=== PATIENT | female | born 1975 | race Caucasian/White ===

== ENCOUNTER 2020-10-30 11:15 | Outpatient (REF) | payer OTHER, SELFPAY ==
--- NOTE | ~2020-10-30 | XR_ITS ---
EXAMINATION: XR THORACIC SPINE CLINICAL INFORMATION: M54.6 - Pain in thoracic spine COMPARISON: Chest radiographs 11/12/2013, CT abdomen and pelvis 04/15/2020. TECHNIQUE: 3 views of the thoracic spine were obtained. FINDINGS: There is normal thoracic segmentation with 12 rib-bearing thoracic vertebrae of normal height and normal thoracic kyphosis. There is gentle dextrocurvature midthoracic spine. There is no vertebral compression, spondylolisthesis, focal disc narrowing, or destructive process. No paraspinal soft tissue swelling. XR/XR thoracic spine 3V IMPRESSION: Mild dextrocurvature midthoracic spine.
[2020-10-30 14:37] LABS: Hematocrit 46.6 % (37-47); Hemoglobin 15.2 g/dl (12.0-16.0); Mean Corpuscular HGB Conc 32.6 g/dl (31.0-35.0); Mean Corpuscular Hemoglobin 29.7 pg (27.0-33.0); Mean Corpuscular Volume 91.2 fL (80-98); Mean Platelet Volume 10.1 fL (9.4-12.3); Platelet Count 318 X10*3/uL (160-400); Red Blood Count 5.11 X10*6/uL (4.20-5.50); Red Cell Distribution Width 13.8 % (11.0-16.0); White Blood Count 6.3 X10*3/uL (4.8-10.8)
[2020-10-30 14:53] LABS: Anion Gap 12 (12-20); Blood Urea Nitrogen 13 mg/dL (9-16); Calcium 9.1 mg/dL (8.4-10.2); Carbon Dioxide 24 mmol/L (22-29); Chloride 107 mmol/L (96-108); Estimated Glomerular Filt Rate > 60; Glucose Random 101 mg/dL (60-115); Potassium 4.4 mmol/L (3.3-5.1); Sodium 139 mmol/L (135-145)
[2020-10-30 15:20] LABS: TSH reflex Free T4 1.13 uIU/mL (0.32-4.0)
[2020-10-31 14:47] LABS: CRP High Sensitivity 3.5 mg/L
== END 2020-10-30 11:16 | disposition home or self-care (01) ==
LOC: HO.WFDLDS 11:15
PROVIDERS: PCP Hospitalist; Visit Provider Hospitalist
DX: R53.83 Other fatigue (principal); G89.29 Other chronic pain; M54.6 Pain in thoracic spine; M54.5 Low back pain
CPT/HCPCS: 36415; 72072; 80048; 84443; 85027; 86141

== ENCOUNTER 2022-01-29 14:36 | Outpatient (REF) | payer OTHER, SELFPAY ==
[2022-01-29 14:57] LABS: MANUAL DIFF FLAG NO
[2022-01-29 16:03] LABS: Basophils Percent Auto 0.3 % (0-2); Eosinophils Absolute Auto 0.1 X10*3/uL (0.0-0.4); Eosinophils Percent Auto 2.1 % (0-4); Hemoglobin 14.8 g/dl (12.0-16.0); Imm Gran Abs Auto 0.01 X10*3/uL (0.00-0.03); Imm Gran Pct Auto 0.1 % (0.0-0.4); Lymphocytes Absolute Auto 1.3 X10*3/uL (1.2-4.9); Lymphocytes Percent Auto 19.5 % (20-40); Mean Corpuscular HGB Conc 33.6 g/dl (31.0-35.0); Mean Corpuscular Hemoglobin 29.6 pg (27.0-33.0); Mean Platelet Volume 9.9 fL (9.4-12.3); Monocytes Absolute Auto 0.4 X10*3/uL (0.1-1.2); Monocytes Percent Auto 5.9 % (2-11); Neutrophils Absolute Auto 4.9 x10*3/uL (2.0-8.3); Neutrophils Percent Auto 72.1 % (45-73); Platelet Count 314 X10*3/uL (160-400); Red Cell Distribution Width 13.8 % (11.0-16.0); White Blood Count 6.8 X10*3/uL (4.8-10.8)
[2022-01-29 16:13] LABS: Alanine Aminotransferase 19 U/L (0-31); Albumin Level 4.4 g/dL (3.5-5.0); Alkaline Phosphatase 106 U/L (39-117); Anion Gap 13 (12-20); Aspartate Amino Transferase 22 U/L (5-31); Bilirubin Total 0.5 mg/dL (0.0-1.0); Blood Urea Nitrogen 9 mg/dL (9-16); C Reactive Protein 0.53 mg/dL (< or = 0.50); Calcium 9.1 mg/dL (8.4-10.2); Carbon Dioxide 21 mmol/L (22-29); Chloride 107 mmol/L (96-108); Estimated Glomerular Filt Rate > 60; Glucose Random 118 mg/dL (60-115); Potassium 3.7 mmol/L (3.3-5.1); Sodium 137 mmol/L (135-145); Total Protein 7.7 g/dL (6.5-8.0)
[2022-02-02 07:26] LABS: Gliadin Deamidated IgA Ab <1.0 U/mL; Gliadin Deamidated IgG Ab <1.0 U/mL; Transglutaminase Ab IgG <1.0 U/mL; Transglutaminase IgA <1.0 U/mL
== END 2022-01-29 14:37 | disposition home or self-care (01) ==
LOC: HO.LAB 14:36
PROVIDERS: PCP Hospitalist; Visit Provider Nurse Practitioner
DX: K58.0 Irritable bowel syndrome with diarrhea (principal)
CPT/HCPCS: 36415; 80053; 85025; 86003; 86140; 86258; 86364; 99202

== ENCOUNTER 2022-02-16 15:00 | Outpatient (REF) | payer OTHER, SELFPAY ==
[2022-02-20 19:22] LABS: Calprotectin, Fecal 39 mcg/g
[2022-02-21 15:32] LABS: Pancreatic Elastase-1 38 mcg/g
== END 2022-02-16 15:01 | disposition home or self-care (01) ==
LOC: HO.LNP 15:00
PROVIDERS: Visit Provider Nurse Practitioner
DX: K58.0 Irritable bowel syndrome with diarrhea (principal)
CPT/HCPCS: 82656; 83993

== ENCOUNTER → 2022-03-03 13:36 | Outpatient (BNVA) | payer OTHER, SELFPAY | PROVIDERS: PCP Hospitalist; Visit Provider Nurse Practitioner | DX: K58.0 Irritable bowel syndrome with diarrhea (principal); G89.29 Other chronic pain; M54.6 Pain in thoracic spine | CPT/HCPCS: 99212 ==

== ENCOUNTER 2022-04-14 12:56 | Outpatient (REF) | payer OTHER, SELFPAY | END 2022-04-14 12:57 | disposition home or self-care (01) | LOC: HO.LAB 12:56 | PROVIDERS: PCP Hospitalist; Visit Provider Nurse Practitioner | DX: K58.0 Irritable bowel syndrome with diarrhea (principal); K86.81 Exocrine pancreatic insufficiency | CPT/HCPCS: 36415; 86003; 99212 ==

== ENCOUNTER → 2022-05-12 10:07 | Outpatient (BNVA) | payer OTHER, SELFPAY | PROVIDERS: PCP Hospitalist; Visit Provider Nurse Practitioner | DX: K86.81 Exocrine pancreatic insufficiency (principal); K58.0 Irritable bowel syndrome with diarrhea | CPT/HCPCS: 99212 ==

== ENCOUNTER → 2022-07-07 12:30 | Outpatient (BNVA) | payer OTHER, SELFPAY | PROVIDERS: PCP Hospitalist; Visit Provider Nurse Practitioner | DX: K86.81 Exocrine pancreatic insufficiency (principal); K58.0 Irritable bowel syndrome with diarrhea | CPT/HCPCS: 99212 ==

== ENCOUNTER 2022-11-10 14:49 | Outpatient (REF) | payer OTHER, SELFPAY ==
[2022-11-10 16:24] LABS: MANUAL DIFF FLAG NO
[2022-11-10 17:07] LABS: Basophils Percent Auto 0.6 % (0-2); Eosinophils Absolute Auto 0.1 X10*3/uL (0.0-0.4); Eosinophils Percent Auto 1.5 % (0-4); Hematocrit 45.7 % (37.0-47.0); Hemoglobin 15.1 g/dl (12.0-16.0); Imm Gran Abs Auto 0.01 X10*3/uL (0.00-0.03); Imm Gran Pct Auto 0.1 % (0.0-0.4); Lymphocytes Absolute Auto 1.6 X10*3/uL (1.2-4.9); Mean Corpuscular Hemoglobin 29.4 pg (27.0-33.0); Mean Corpuscular Volume 89.1 fL (80.0-98.0); Mean Platelet Volume 9.6 fL (9.4-12.3); Monocytes Absolute Auto 0.5 X10*3/uL (0.1-1.2); Monocytes Percent Auto 7.2 % (2-11); Neutrophils Percent Auto 68.6 % (45-73); Platelet Count 298 X10*3/uL (160-400); Red Blood Count 5.13 X10*6/uL (4.20-5.50); Red Cell Distribution Width 13.6 % (11.0-16.0); White Blood Count 7.3 X10*3/uL (4.8-10.8)
[2022-11-10 17:41] LABS: Amylase 49 U/L (28-100); Lipase 20 U/L (8-78)
[2022-11-10 17:58] LABS: TSH reflex Free T4 1.48 uIU/mL (0.32-4.0)
== END 2022-11-10 14:50 | disposition home or self-care (01) ==
LOC: HO.LAB 14:49
PROVIDERS: PCP Hospitalist; Visit Provider Nurse Practitioner
DX: R10.9 Unspecified abdominal pain (principal); K86.81 Exocrine pancreatic insufficiency; M54.6 Pain in thoracic spine
CPT/HCPCS: 36415; 82150; 83690; 84443; 85025; 99212

== ENCOUNTER 2022-12-22 15:18 | Outpatient (REF) | payer OTHER, SELFPAY ==
--- NOTE | ~2022-12-22 | CT_ITS ---
EXAMINATION: CT ABDOMEN AND PELVIS WITH CONTRAST CLINICAL INFORMATION: Abdominal pain. COMPARISON: CT abdomen and pelvis with contrast 04/15/2020. TECHNIQUE: Multidetector volumetric images were obtained from the superior aspect of the liver through the pubic symphysis following administration 85 mL of Omnipaque 350 intravenous contrast. Sagittal and coronal reformatted images were obtained on the technologist's workstation. Oral contrast: No This CT examination was performed using dose optimization techniques as appropriate, variously including the following: *Automated exposure control *Adjustment of mA and/or kV according to patient size (this includes techniques or standardized protocols for targeted exams where dose is matched to indication/reason for exam; i.e. extremities or head) *Use of iterative reconstruction technique DLP: 501 mGy-cm FINDINGS: LUNG BASES: The visualized lung bases are unremarkable. LIVER, GALLBLADDER, AND BILIARY TREE: The liver is normal in size, shape, and attenuation. No focal hepatic lesion or biliary ductal dilatation is present. The gallbladder is unremarkable with no evidence of radiopaque gallstones, gallbladder wall thickening, or obvious pericholecystic inflammatory changes. PANCREAS: Unremarkable. SPLEEN: Unremarkable. ADRENAL GLANDS: Unremarkable. KIDNEYS AND URETERS: The kidneys are normal in size, shape, and attenuation. No hydronephrosis, hydroureter, or calculi seen. No perinephric stranding. There are at least 2 left renal cysts measuring 2 cm and 1.7 cm in lower pole and a smaller 6 mm cyst lower pole right kidney. BLADDER: Unremarkable. GASTROINTESTINAL TRACT: There is scattered stool and gas seen throughout the colon without distention. The small bowel loops are normal caliber. Appendix is normal caliber. ABDOMINAL WALL: Small umbilical hernia containing fat is noted. LYMPH NODES: Normal. VASCULAR: Unremarkable. PELVIC VISCERA: The uterus is anteverted and appears unremarkable. There is no adnexal mass or free fluid. OSSEOUS STRUCTURES: No aggressive lytic or sclerotic process seen. CT/CT abdomen pelvis w IV con IMPRESSION: 1. No acute intra-abdominal process seen. 2. Bilateral renal cysts. 3. No major change compared to previous study 04/15/2020. Fleischner guidelines were followed.
[2022-12-22] MEDS: iohexoL 350 MG/ML 100 ML INFUS..BTL IV (15:45)
== END 2022-12-22 15:19 | disposition home or self-care (01) ==
LOC: HO.CT 15:18
PROVIDERS: PCP Hospitalist; Visit Provider Nurse Practitioner
DX: R10.9 Unspecified abdominal pain (principal)
CPT/HCPCS: 74177; Q9967

== ENCOUNTER 2023-06-28 11:14 | Outpatient (AMB) | payer OTHER, SELFPAY ==
[2023-06-28 11:19] VITALS: BP 128/78; PULSE 103; O2SAT 98; BMI 34.5
--- NOTE | 2023-06-28 11:19 | MHC.PC.OV ---
Vital Signs 06/28/23 11:19 Height 5 ft 5 in Weight 207 lb 2 oz BMI 34.5 BP 128/78 Blood Pressure Location Lt brachial Position Sitting Pulse 103 H Pulse Source Pulse Oximeter Pulse Oximetry (%) 98 Oxygen Delivery Method Room Air Intake Visit Reasons: Transfer of care, f/u chronic conditions Intake Note: Patient is here to transfer care from [facility]. Allergies Sulfa (Sulfonamide Antibiotics) Allergy (Intermediate, Verified 06/28/23 11:21) hives Tobacco use date assessed: 06/28/23 Dental Screening Dental Screen Date: 06/28/23 Did you have a dental visit in the last 12 months?: Yes Did you have a dental problem in the last 6 months where you did not have access to dental care?: No Was dental information given to patient?: Yes HPI Transfer of care, f/u chronic conditions HPI Details New patient/Transfer of Care Prior PCP:?[facility] Last office visit/CPE: Acute issue(s): b/L Hand swelling -Does have hx of arthritis. She reports FHx of lupus. PMHx: Thoracic back pain, Hypertension, Anxiety/Depression, IBS, Overactive bladder, Asthma SurgHx: None FHx: Mom: Diabetes, Epilepsy, Dementia. Dad: COPD, CAD SocHx: Nonsmoker. EtOH none. No drugs. PFSH Surgical History H/O colonoscopy History of bronchoscopy History of wisdom tooth extraction Family History Father COPD (chronic obstructive pulmonary disease) Smoker Mother Dementia Social History Housing: Apartment Patient Tobacco Use Status: Never used Tobacco e-Cigarette/Vaping Use: Never Used Second Hand Smoke Exposure: Yes service: No Current occupational status: unemployed Current occupational exposures/hazards: No Cognitive needs: No Hearing needs: No Vision needs: No Questionnaire Thrive Questionnaire Date Thrive assessed: 11/25/22 TRACEE-7 AMB Questionnaire TRACEE-7 Date TRACEE - 7 assessed: 11/25/22 Source: Developed by Drs. Jimmie Suresh, Emilie Dudley, Eddie Gusman and colleagues, with an educational sohail from [email or web address]. Review of Systems Const Denies chills, Denies fatigue, Denies fever(s), Denies headache(s) and Denies weakness ENT Denies dizziness and Denies headache(s) Card Denies chest pain, Denies lightheadedness, Denies dyspnea and Denies other (Palpitations) Resp Denies cough, Denies dyspnea, Denies wheezing and Denies other ( shortness of breath) Musc Denies numbness and Denies tingling Neuro Denies dizziness, Denies headache(s), Denies numbness, Denies tingling, Denies paresthesias and Denies weakness Psych Denies anxiety and Denies depression Endo Denies fatigue Aller/Immun Denies wheezing Physical exam (Primary Care) Vital Signs: Last Vital Signs Pulse 103 H 06/28/23 11:19 BP 128/78 06/28/23 11:19 Pulse Ox 98 06/28/23 11:19 Oxygen Delivery Method Room Air 06/28/23 11:19 BMI result Body Mass Index 34.5 Tobacco/Smoking Status: Tobacco use Status Tobacco use date assessed 06/28/23 06/28/23 11:22 Patient Tobacco Use Status Never used Tobacco 06/28/23 11:22 e-Cigarette/Vaping Use Never Used 06/28/23 11:22 Thrive Assessment: Date of Thrive Assessment Date Thrive assessed 11/25/22 06/28/23 11:22 Const General: no acute distress and well developed Nutritional Appearance: well nourished Orientation/consciousness: patient oriented x3 HENMT Head: Yes normocephalic and Yes atraumatic Eyes General: appearance normal, both eyes and all related structures Pupils: Equal, round and reactive pupils present EOM: EOMs intact bilaterally Resp Effort & Inspection: normal respiratory effort Auscultation: clear to auscultation bilaterally Cardio Rate: regular rate Rhythm: regular rhythm Heart sounds: S1 normal heart sound present, S2 normal heart sound present, no gallops, no murmurs and no rubs Neuro General: patient oriented x3 and gait normal Cranial nerves: Yes Equal, round and reactive pupils present Psych Affect: normal affect Assessment and Plan Assessment & Plan (1) Thoracic back pain: Code(s): M54.6 - Pain in thoracic spine (2) Hand swelling: Code(s): M79.89 - Other specified soft tissue disorders (3) Anxiety and depression: Code(s): F41.9 - Anxiety disorder, unspecified; F32.9 - Major depressive disorder, single episode, unspecified (4) HTN (hypertension): Code(s): I10 - Essential (primary) hypertension (5) Laboratory exam ordered as part of routine general medical examination: Code(s): Z00.00 - Encounter for general adult medical examination without abnormal findings (6) Immunization counseling: Code(s): Z71.85 - Encounter for immunization safety counseling Orders: Orders Comprehensive [place]. Panel Fast Today Z00.00 - Encounter for general adult medical examination without abnormal findings UA and rflx microscopic Today Z00.00 - Encounter for general adult medical examination without abnormal findings TSH reflex Free T4 Today Z00.00 - Encounter for general adult medical examination without abnormal findings Vitamin B12 and Folate Today E53.8 - Deficiency of other specified B group vitamins Erythrocyte Sedimentation Rate Today M79.89 - Other specified soft tissue disorders CRP High Sensitivity Today M79.89 - Other specified soft tissue disorders Complete Blood Count Auto Diff Today Z00.00 - Encounter for general adult medical examination without abnormal findings Lipid Panel Today Z00.00 - Encounter for general adult medical examination without abnormal findings Microalbumin, Random (w Creat) Today I10 - Essential (primary) hypertension Lipase Today K86.81 - Exocrine pancreatic insufficiency Amylase Today K86.81 - Exocrine pancreatic insufficiency PT Evaluation and Treatment Today G89.29 - Other chronic pain, M54.50 - Low back pain, unspecified, M54.6 - Pain in thoracic spine Medications: New fluoxetine Fluoxetine total daily dose 30mg 10 mg PO DAILY 30 caps 3RF 30 days Changed From fluoxetine 20 mg PO DAILY 90 caps 3RF To fluoxetine Fluoxetine?total?daily?dose?30?mg 20 mg PO DAILY 90 days 90 caps 3RF Coding Level of Care Code Est Pt Level 4 (82259) Diagnoses Thoracic back pain M54.6 Hand swelling M79.89 Anxiety and depression F41.9; F32.9 HTN (hypertension) I10 Laboratory exam ordered as part of routine general medical examination Z00.00 Immunization counseling Z71.
== END 2023-06-28 12:36 | disposition home or self-care (01) ==
PROVIDERS: PCP Hospitalist; Visit Provider Family Medicine
DX: M54.6 Pain in thoracic spine (principal); M79.89 Other specified soft tissue disorders; F41.9 Anxiety disorder, unspecified; Z23 Encounter for immunization; F32.9 Major depressive disorder, single episode, unspecified; I10 Essential (primary) hypertension; Z71.85 Encounter for immunization safety counseling
CPT/HCPCS: 90471; 90686; 99214

== ENCOUNTER 2023-07-12 11:02 | Outpatient (REF) | payer OTHER, SELFPAY ==
[2023-07-12 11:36] LABS: MANUAL DIFF FLAG NO
[2023-07-12 12:05] LABS: Basophils Percent Auto 0.3 % (0-2); Eosinophils Absolute Auto 0.1 X10*3/uL (0.0-0.4); Eosinophils Percent Auto 2.2 % (0-4); Hematocrit 45.1 % (37.0-47.0); Imm Gran Abs Auto 0.01 X10*3/uL (0.00-0.03); Imm Gran Pct Auto 0.2 % (0.0-0.4); Lymphocytes Absolute Auto 1.4 X10*3/uL (1.2-4.9); Lymphocytes Percent Auto 24.1 % (20-40); Mean Corpuscular HGB Conc 33.3 g/dl (31.0-35.0); Mean Corpuscular Hemoglobin 29.9 pg (27.0-33.0); Mean Corpuscular Volume 89.8 fL (80.0-98.0); Mean Platelet Volume 9.7 fL (9.4-12.3); Monocytes Absolute Auto 0.4 X10*3/uL (0.1-1.2); Neutrophils Absolute Auto 3.9 x10*3/uL (2.0-8.3); Neutrophils Percent Auto 67.2 % (45-73); Platelet Count 266 X10*3/uL (160-400); Red Blood Count 5.02 X10*6/uL (4.20-5.50); Red Cell Distribution Width 13.7 % (11.0-16.0); White Blood Count 5.8 X10*3/uL (4.8-10.8)
[2023-07-12 12:40] LABS: Alanine Aminotransferase 21 U/L (0-31); Albumin Level 4.2 g/dL (3.5-5.0); Alkaline Phosphatase 87 U/L (39-117); Amylase 43 U/L (28-100); Anion Gap 9 (12-20); Aspartate Amino Transferase 16 U/L (5-31); Bilirubin Total 0.6 mg/dL (0.0-1.0); Blood Urea Nitrogen 10 mg/dL (9-16); Calcium 9.2 mg/dL (8.4-10.2); Carbon Dioxide 24 mmol/L (22-29); Chloride 109 mmol/L (96-108); Cholesterol 197 mg/dL (<200); Estimated Glomerular Filt Rate > 60; Glucose Fasting 101 mg/dL (60-99); HDL Cholesterol 40 mg/dL (>40); LDL Cholesterol Calculated 141 mg/dL (<100); Lipase 17 U/L (8-78); Potassium 3.7 mmol/L (3.3-5.1); Sodium 138 mmol/L (135-145); Total Protein 7.9 g/dL (6.5-8.0); Triglycerides 82 mg/dL (<150)
[2023-07-12 12:42] LABS: Erythrocyte Sedimentation Rate 32 MM/HR (0-20)
[2023-07-12 12:55] LABS: TSH reflex Free T4 1.83 uIU/mL (0.32-4.0)
[2023-07-12 13:07] LABS: Vitamin B12 297 pg/mL (200-900)
[2023-07-12 14:08] LABS: Appearance Urine Hazy; Color Urine Yellow; Glucose Urine UA Negative (Negative); Leukocyte Esterase Urine Small (1+) (Negative); Nitrite Urine Negative (Negative); UMIC TRIGGER UA YES; Urine Blood Trace (Negative); Urine Ketones Negative (Negative); Urine Protein Trace mg/dL (Neg-Trace)
[2023-07-12 14:18] LABS: Bacteria Urine 2+ (None Seen); Hyaline Casts Urine 0-2 /LPF (0-2); RBC Urine 0-2 /HPF (0-2)
[2023-07-12 14:27] LABS: Creatinine Urine 206.73 mg/dL; Microalbum/Creatinine Ratio Ur 23.2 ug/mg cr (<30)
[2023-07-15 19:33] LABS: CRP High Sensitivity 3.2 mg/L
== END 2023-07-12 11:03 | disposition home or self-care (01) ==
LOC: HO.LAB 11:02
PROVIDERS: PCP Family Medicine; Visit Provider Family Medicine
DX: Z00.00 Encounter for general adult medical examination without abnormal findings (principal); E53.8 Deficiency of other specified B group vitamins; I10 Essential (primary) hypertension; M79.89 Other specified soft tissue disorders; K86.81 Exocrine pancreatic insufficiency
CPT/HCPCS: 36415; 80053; 80061; 81001; 82043; 82150; 82570; 82607; 82746; 83690; 84443; 85025; 85652; 86141

== ENCOUNTER 2023-08-26 12:08 | Outpatient (AMB) | payer OTHER, SELFPAY ==
--- NOTE | 2023-08-26 12:10 | A.OFFVIS_ITS ---
Intake Vital Signs 08/26/23 12:17 Height 5 ft 5 in Weight 207 lb 3.752 oz BMI 34.5 BP 163/92 H Blood Pressure Location Lt brachial Position Sitting Pulse 105 H Intake Visit Reasons: follow up req by pt Intake Note: Myrna She would like results to her blood work from June. That is her only real concern at this time. Higher Education Administrator Required: No Allergies Sulfa (Sulfonamide Antibiotics) Allergy (Intermediate, Verified 08/26/23 12:19) hives Medication List - Last Reconciled 08/26/23 by KAREN Redding albuterol sulfate 90 mcg/actuation (ProAir HFA) 2 puffs inhalation Q4-6H PRN blood pressure monitor (Blood Pressure Kit) monitor bp daily and when not feeling well clonidine HCl 0.1 mg PO TID PRN dicyclomine 20 mg PO QID 30 days eluxadoline (Viberzi) 100 mg PO BID eluxadoline (Viberzi) 100 mg PO BID fluoxetine 10 mg PO DAILY 30 days fluoxetine 20 mg PO DAILY 90 days [id number] 24,000-76,000 -120,000 unit (Creon) 2 caps PO QID 30 days loperamide (Anti-Diarrheal (loperamide)) mg PO losartan 25 mg PO DAILY medroxyprogesterone 150 mg IM [id number] HPI follow up req by pt HPI Details Assessment & Plan (1) Exocrine pancreatic insufficiency: Comment: pancreatic elastase only 36!! Code(s): K86.81 - Exocrine pancreatic insufficiency Plan: She is using the Lotronex 0.5mg bid and at first she stopped the creon, but then she became very crampy and gassy and had to restart it. She has better bowel control, but at times it is variable between softer and harder stooling. We discuss possible increase in dose, but she wants to wait longer to see. She is concerned with left sided mid to low back pain that at times wraps around to the front. She describes this pain as a crampy/achy/pushing sensation. This is worsened with prolonged standing and some movements and not r/t bowel movements. This has been interrupting her sleep. She tries putting a pillow behind her back when sitting or laying and has used a heating pad. The pain is always there at a low level of 2/10 but at times is 7/10. There is no association with BM's or urine that she can recall. Will get CT to be thorough and rule out any internal organ/major problem. It sounds really musculoskeletal, and despite a fairly normal thoracic xray she has very increased paraspinal tone in the low thoracic back/early lumbar region with point tenderness at L2-L3 and to the left. I will try a bid dose of baclofen, cautioning her that if it make spencer too sleepy during the day to take it only qhs. She is not taking clonidine regularly, but I educate her this could be causing drowsiness. Also will get labs incl TSH. ROV after CT. (2) Thoracic back pain: Code(s): M54.6 - Pain in thoracic spine (3) Left sided abdominal pain: Code(s): R10.9 - Unspecified abdominal pain Orders: Orders Amylase Today R10.9 - Unspecifie d abdominal pain Lipase Today R10.9 - Unspecifie d abdominal pain TSH reflex Free T4 Today R10.9 - Unspecifie d abdominal pain CT abdomen pelvis w IV con Today R10.9 - Unspecifie d abdominal pain Complete Blood Cou nt Auto Diff Today R10.9 - Unspecifie d abdominal pain Medications: New baclofen 20 mg PO BID 60 t abs 0RF M54.6 - Pain in th oracic spine, R10. 9 - Unspecified ab dominal pain Refilled alosetron (Lotrone x) 1 mg (2 x 0.5 mg) PO BID 60 tabs 6RF K58.0 - Irritable bowel syndrome wit h diarrhea Discontinued eluxadoline (Viber zi) must admini ster with a meal/f ood, stopping dicy clomine and creon Discontinued Re ason: Doctor's Or patricia 75 mg PO BID 60 t abs 3RF LABS: Laboratory Tests 07/12/23 11:33 WBC 5.8 Hgb 15.0 Hct 45.1 Plt Count 266 Amylase 43 [address]ase [address] ABD AND PELVIS 12/24/22 FINDINGS: LUNG BASES: The visualized lung bases are unremarkable. LIVER, GALLBLADDER, AND BILIARY TREE: The liver is normal in size, shape, and attenuation. No focal hepatic lesion or biliary ductal dilatation is present. The gallbladder is unremarkable with no evidence of radiopaque gallstones, gallbladder wall thickening, or obvious pericholecystic inflammatory changes. PANCREAS: Unremarkable. SPLEEN: Unremarkable. ADRENAL GLANDS: Unremarkable. KIDNEYS AND URETERS: The kidneys are normal in size, shape, and attenuation. No hydronephrosis, hydroureter, or calculi seen. No perinephric stranding. There are at least 2 left renal cysts measuring 2 cm and 1.7 cm in lower pole and a smal ler 6 mm cyst lower pole right kidney. BLADDER: Unremarkable. GASTROINTESTINAL TRACT: There is scattered stool and gas seen throughout the colon without distention. The small bowel loops are normal caliber. Appendix is normal caliber. ABDOMINAL WALL: Small umbilical hernia containing fat is noted. LYMPH NODES: Normal. VASCULAR: Unremarkable. PELVIC VISCERA: The uterus is anteverted and appears unremarkable. There is no adnexal mass or free fluid. OSSEOUS STRUCTURES: No aggressive lytic or sclerotic process seen. CT/CT abdomen pelvis w IV con IMPRESSION: 1. No acute intra-abdominal process seen . 2. Bilateral renal cysts. 3. No major change compared to previous study 04/15/2020. TODAY'S VISIT She had trouble with diarrhea and stomach pain over the holiday/week. She notes that her sx are worse with beef and fattier foods. She is c/o darker yellow urine, and this is likely r/t diarrhea and decreased po intake. I believe that her symptoms are combination of exocrine pancreatic insufficiency and IBS. We have pretty much excluded any severe pathology. I did educate her that this takes detect to work on her part in terms of keeping a good food diary, stress diary, etc. to try to find triggers for her symptoms. In order to give her better control were going to add back in the dicyclomine and I suggest she take this up to 4 times a day when she has having a bad week. She is currently taking the Viberzi just once a day because she became constipated when she took it twice a day. She also continues on her Creon taking 2 tablets twice a day. Return office visit in 8 weeks to see if she is discovered any other triggers and to evaluate the dicyclomine. [facility] Medical History (Updated 08/26/23 @ 12:22 by KAREN Redding) Immunization counseling Laboratory exam ordered as part of routine general medical examination Annual physical exam Screening for blood or protein in urine Normal physical exam Left sided abdominal pain Thoracic back pain Colon cancer screening Elevated blood pressure reading Symptomatic tonsillar crypt Well adult exam Left low back pain Surgical History H/O colonoscopy History of bronchoscopy History of wisdom tooth extraction Family History Father COPD (chronic obstructive pulmonary disease) Smoker Mother Dementia Social History Housing: Apartment Patient Tobacco Use Status: Never used Tobacco e-Cigarette/Vaping Use: Never Used Second Hand Smoke Exposure: Yes service: No Current occupational status: unemployed Current occupational exposures/hazards: No Cognitive needs: No Hearing needs: No Vision needs: No Review of Systems Const Denies fatigue, Denies fever(s), Denies night sweats, Denies poor appetite and Denies weight loss ENT Reports Normal hearing present, Denies dental pain, Denies dysphagia, Denies hearing loss, Denies mouth pain, Denies odynophagia, Denies throat swelling, Denies tongue swelling and Reports other (Dentition adequate) Card Reports no additional complaints Resp Reports no additional complaints GI Denies abdominal pain, Denies melena, Reports bloating, Denies hematochezia, Denies constipation, Denies GI cramping, Denies dysphagia, Denies excessive flatus, Denies early satiety, Reports dyspepsia, Denies heartburn, Reports diarrhea, Denies nausea, Denies odynophagia, Denies vomiting and Denies hematemesis Skin/Breast Denies pruritus, Denies lesions, Denies rash and Denies jaundice Neuro Reports Normal hearing present and Denies Abnormal speech present Endo Denies fatigue Aller/Immun Denies throat swelling and Denies tongue swelling Physical Exam Vital Signs: Last Vital Signs Pulse 105 H 08/26/23 12:17 BP 163/92 H 08/26/23 12:17 BMI result Body Mass Index 34.5 Const General: cooperative, no acute distress, well developed and well groomed Nutritional Appearance: well nourished and obese Orientation/consciousness: oriented to person, oriented to place and oriented to time Limitations: No language barrier HEENT Head: Yes normocephalic and Yes atraumatic Eyes General: appearance normal, both eyes and all related structures Pupils: Equal, round and reactive pupils present Neck Neck: Yes normal visual inspection and Yes no lymphadenopathy Thyroid: Thyroid normal Resp Effort & Inspection: normal respiratory effort and able to speak in complete sentences Auscultation: clear to auscultation bilaterally Cardio Rate: regular rate Rhythm: regular rhythm Heart sounds: Normal, physiologic split S2 sound present Peripheral pulses: radial pulses present and posterior tibial pulses present GI Inspection: No distended, No Abdominal panniculus present and Yes obesity Palpation (GI): Soft to palpation, nontender, no guarding, not rigid and No hepatosplenomegaly present Percussion: Yes normal to percussion Auscultation: normal bowel sounds Rectal Exam - Female: deferred Skin General skin exam: no rashes or lesions noted, turgor normal, skin not dry, no jaundice, No spider nevi and no striae Rashes: no rashes Nails: normal Neuro General: oriented to person, oriented to place and oriented to time Cranial nerves: Yes Equal, round and reactive pupils present and Yes Normal hearing present Speech: No Abnormal speech present Extrem General: Yes normal to inspection, No clubbing, No cyanosis and No edema Psych Appearance: grossly normal and well kempt Mental Status: mental status grossly normal Speech and movement: Normal speech and movement present Affect: normal affect Attitude: cooperative Thought process: Normal thought process present and not confabulating Thought content: Normal thought content present Insight: Limited insight present (Psych) Judgement: Limited judgement present (Psych) Results Reviewed Results Reviewed: Laboratory Tests 07/12/23 11:33 WBC 5.8 Hgb 15.0 Hct 45.1 Plt Count 266 Amylase 43 Lipase [address] ABD AND PELVIS 12/24/22 FINDINGS: LUNG BASES: The visualized lung bases are unremarkable. LIVER, GALLBLADDER, AND BILIARY TREE: The liver is normal in size, shape, and attenuation. No focal hepatic lesion or biliary ductal dilatation is present. The gallbladder is unremarkable with no evidence of radiopaque gallstones, gallbladder wall thickening, or obvious pericholecystic inflammatory changes. PANCREAS: Unremarkable. SPLEEN: Unremarkable. ADRENAL GLANDS: Unremarkable. KIDNEYS AND URETERS: The kidneys are normal in size, shape, and attenuation. No hydronephrosis, hydroureter, or calculi seen. No perinephric stranding. There are at least 2 left renal cysts measuring 2 cm and 1.7 cm in lower pole and a smaller 6 mm cyst lower pole right kidney. BLADDER: Unremarkable. GASTROINTESTINAL TRACT: There is scattered stool and gas seen throughout the colon without distention. The small bowel loops are normal caliber. Appendix is normal caliber. ABDOMINAL WALL: Small umbilical hernia containing fat is noted. LYMPH NODES: Normal. VASCULAR: Unremarkable. PELVIC VISCERA: The uterus is anteverted and appears unremarkable. There is no adnexal mass or free fluid. OSSEOUS STRUCTURES: No aggressive lytic or sclerotic process seen. CT/CT abdomen pelvis w IV con IMPRESSION: 1. No acute intra-abdominal process seen. 2. Bilateral renal cysts. 3. No major change compared to previous study 04/15/2020. Assessment & Plan Assessment & Plan (1) Irritable bowel syndrome with diarrhea: Code(s): K58.0 - Irritable bowel syndrome with diarrhea (2) Exocrine pancreatic insufficiency: Comment: pancreatic elastase only 36!! Code(s): K86.81 - Exocrine pancreatic insufficiency Plan She had trouble with diarrhea and stomach pain over the holiday/week. She notes that her sx are worse with beef and fattier foods. She is c/o darker yellow urine, and this is likely r/t diarrhea and decreased po intake. I believe that her symptoms are combination of exocrine pancreatic insufficiency and IBS. We have pretty much excluded any severe pathology. I did educate her that this takes detect to work on her part in terms of keeping a good food diary, stress diary, etc. to try to find triggers for her symptoms. In order to give her better control were going to add back in the dicyclomine and I suggest she take this up to 4 times a day when she has having a bad week. She is currently taking the Viberzi just once a day because she became constipated when she took it twice a day. She also continues on her Creon taking 2 tablets twice a day. Return office visit in 8 weeks to see if she is discovered any other triggers and to evaluate the dicyclomine. Medications: New dicyclomine 20 mg PO QID 30 days 120 tabs 6RF K58.0 - Irritable bowel syndrome with diarrhea Refilled eluxadoline (Viberzi) must administer with a meal/food 100 mg PO BID 60 tabs 5RF Discontinued baclofen Discontinued Reason: Doctor's Order 20 mg PO BID 90 days 180 tabs 0RF M54.6 - Pain in thoracic spine, R10.9 - Unspecified abdominal pain Coding Level of Care Code Est Pt Level 3 (44308) Diagnoses Irritable bowel syndrome with diarrhea K58.0 Exocrine pancreatic insufficiency K86.81
[2023-08-26 12:17] VITALS: BP 163/92; PULSE 105; BMI 34.5
== END 2023-08-26 12:52 | disposition home or self-care (01) ==
PROVIDERS: PCP Family Medicine; Visit Provider Nurse Practitioner
DX: K58.0 Irritable bowel syndrome with diarrhea (principal); K86.81 Exocrine pancreatic insufficiency
CPT/HCPCS: 99213

== ENCOUNTER → 2023-08-26 12:08 | Outpatient (BNVA) | payer OTHER, SELFPAY | PROVIDERS: PCP Family Medicine; Visit Provider Nurse Practitioner | DX: K86.81 Exocrine pancreatic insufficiency (principal); K58.0 Irritable bowel syndrome with diarrhea; Z79.899 Other long term (current) drug therapy | CPT/HCPCS: 99212 ==

== ENCOUNTER 2023-10-21 11:56 | Outpatient (AMB) | payer OTHER, SELFPAY ==
[2023-10-21 11:58] VITALS: BP 173/82; PULSE 101; BMI 34.8
--- NOTE | 2023-10-21 11:58 | A.OFFVIS_ITS ---
Intake Vital Signs 10/21/23 11:58 10/21/23 12:06 Height 5 ft 5 in Weight 209 lb 7.026 oz BMI 34.8 BP 173/82 H 160/72 H Blood Pressure Location Lt brachial Rt brachial Position Sitting Sitting Pulse 101 H Intake Visit Reasons: 8 weeks follow up Intake Note: Patient in office today in 8 weeks follow up of IBS. CC: Dizzy spells for a month on and off and feeling like she will faint. Patient denies other GI concerns today. Cover Operator Required: No Accompanied by: Self / Same As Patient Allergies Sulfa (Sulfonamide Antibiotics) Allergy (Intermediate, Verified 08/26/23 12:19) hives HPI 8 weeks follow up HPI Details Assessment & Plan (1) Irritable bowel syndrome with diarrh ea: Code(s): K58.0 - Irritable bowel syndrome with diarrhea (2) Exocrine pancreatic insufficiency: Comment: pancreatic elastase only 36!! Code(s): K86.81 - Exocrine pancreatic insufficiency Plan She had trouble with diarrhea and stomach pain over the holiday/week. She notes that her sx are worse with beef and fattier foods. She is c/o darker yellow urine, and this is likely r/t diarrhea and decreased po intake. I believe that her symptoms are combination of exocrine pancreatic insufficiency and IBS. We have pretty much excluded any severe pathology. I did educate her that this takes detect to work on her part in terms of keeping a good food diary, stress diary, etc. to try to find triggers for her symptoms. In order to give her better control were going to add back in the dicyclomine and I suggest she take this up to 4 times a day when she has having a bad week. She is currently taking the Viberzi just once a day because she became constipated when she took it twice a day. She also continues on her Creon taking 2 tablets twice a day. Return office visit in 8 weeks to see if she is discovered any other triggers and to evaluate the dicyclomine. Medications: New dicyclomine 20 mg PO QID 30 d ays 120 tabs 6RF K58.0 - Irritable bowel syndrome wit h diarrhea Refilled eluxadoline (Viber zi) must admini ster with a meal/f ood 100 mg PO BID 60 tabs 5RF Discontinued baclofen Discon tinued Reason: Do ctor's Order 20 mg PO BID 90 d ays 180 tabs 0RF M54.6 - Pain in th oracic spine, R10. 9 - Unspecified ab dominal pain CORRESPONDENCE On 04/13/23 @ 14:57 Mirian Posadas Wrote To Myrna Ye Sure, higher dose was sent today On 04/13/23 @ 14:32 Myrna Ye (Regarding Self / Same As Patient) Wrote To Mirian Posadas Kathy November I was wondering if it be possible to try doing an increase on the dosage for the Viberzi meds.I been taking it as you prescribed 75 mg 2 times a day but sometime still having it hard so been taking Lopremide at times when been hard.Was wondering could we try going to the 100 mg twice a day and see if that helps better.Thank you for reading this over appreciate your help.Sincerely Myrna Evangelista TODAY'S VISIT She is taking the bentyl tid. She also continues on her creon and Viberzi. She had been taking the Viberzi qd, but she has had a tough week and she may need to titrate up to bid. She has had a lot of stresses, her aunt is going through breast cancer. Her eating is all over the place as well and she was taking the creon qid and I present that 2 caps bid may be better. At times she is overwhelmed with the pill burden. She has been having some dizziness and while it could be r/t the bentyl, it is intermittent and inconsistent. The ddx is wide and could include anxiety, low BS, dehydration etc. Since the DDX is so wide I defer this work up to her PCP who she will be seeing soon - but she can experiment with the bentyl to see if this is the source. Return office visit in 3 months to see how she is doing PFSH Medical History Immunization counseling Laboratory exam ordered as part of routine general medical examination Annual physical exam Screening for blood or protein in urine Normal physical exam Left sided abdominal pain Thoracic back pain Colon cancer screening Elevated blood pressure reading Symptomatic tonsillar crypt Well adult exam Left low back pain Surgical History H/O colonoscopy History of bronchoscopy History of wisdom tooth extraction Family History Father COPD (chronic obstructive pulmonary disease) Smoker Mother Dementia Social History Housing: Apartment Patient Tobacco Use Status: Never used Tobacco e-Cigarette/Vaping Use: Never Used Second Hand Smoke Exposure: Yes service: No Current occupational status: unemployed Current occupational exposures/hazards: No Cognitive needs: No Hearing needs: No Vision needs: No Review of Systems Const Denies fatigue, Denies fever(s), Denies night sweats, Denies poor appetite and Denies weight loss ENT Reports Normal hearing present, Denies dental pain, Denies dysphagia, Reports dizziness, Denies hearing loss, Denies mouth pain, Denies odynophagia, Denies throat swelling, Denies tongue swelling and Reports other (Dentition adequate) Card Reports no additional complaints Resp Reports no additional complaints GI Details: Denies abdominal pain, Denies melena, Reports bloating, Denies hematochezia, Denies constipation, Denies GI cramping, Denies dysphagia, Denies excessive flatus, Denies early satiety, Denies heartburn, Denies diarrhea, Denies nausea, Denies odynophagia, Denies vomiting and Denies hematemesis Skin/Breast Denies pruritus, Denies lesions, Denies rash and Denies jaundice Neuro Reports Normal hearing present, Denies Abnormal speech present and Reports dizziness Endo Denies fatigue Aller/Immun Denies throat swelling and Denies tongue swelling Physical Exam Vital Signs: Last Vital Signs Pulse 101 H 10/21/23 11:58 BP 160/72 H 10/21/23 12:06 BMI result Body Mass Index 34.8 Const General: cooperative, no acute distress, well developed and well groomed Nutritional Appearance: well nourished and obese Orientation/consciousness: oriented to person, oriented to place and oriented to time Limitations: No language barrier HEENT Head: Yes normocephalic and Yes atraumatic Eyes General: appearance normal, both eyes and all related structures Pupils: Equal, round and reactive pupils present Neck Neck: Yes normal visual inspection and Yes no lymphadenopathy Thyroid: Thyroid normal Resp Effort & Inspection: normal respiratory effort and able to speak in complete sentences Auscultation: clear to auscultation bilaterally Cardio Rate: regular rate Rhythm: regular rhythm Heart sounds: Normal, physiologic split S2 sound present Peripheral pulses: radial pulses present and posterior tibial pulses present GI Inspection: No distended, No Abdominal panniculus present and Yes obesity Palpation (GI): Soft to palpation, nontender, no guarding, not rigid and No hepatosplenomegaly present Percussion: Yes normal to percussion Auscultation: normal bowel sounds Rectal Exam - Female: deferred Skin General skin exam: no rashes or lesions noted, turgor normal, skin not dry, no jaundice, No spider nevi and no striae Rashes: no rashes Nails: normal Neuro General: oriented to person, oriented to place and oriented to time Cranial nerves: Yes Equal, round and reactive pupils present and Yes Normal hearing present Speech: No Abnormal speech present Extrem General: Yes normal to inspection, No clubbing, No cyanosis and No edema Psych Appearance: grossly normal and well kempt Mental Status: mental status grossly normal Speech and movement: Normal speech and movement present Affect: normal affect Attitude: cooperative Thought process: Normal thought process present and not confabulating Thought content: Normal thought content present Insight: Fair insight present (Psych) and Limited insight present (Psych) Judgement: Fair judgement present (Psych) and Limited judgement present (Psych) Assessment & Plan Assessment & Plan (1) Irritable bowel syndrome with diarrhea: Code(s): K58.0 - Irritable bowel syndrome with diarrhea (2) Exocrine pancreatic insufficiency: Comment: pancreatic elastase only 36!! Code(s): K86.81 - Exocrine pancreatic insufficiency Plan She is taking the bentyl tid. She also continues on her creon and Viberzi. She had been taking the Viberzi qd, but she has had a tough week and she may need to titrate up to bid. She has had a lot of stresses, her aunt is going through breast cancer. Her eating is all over the place as well and she was taking the creon qid and I present that 2 caps bid may be better. At times she is overwhelmed with the pill burden. She has been having some dizziness and while it could be r/t the bentyl, it is intermittent and inconsistent. The ddx is wide and could include anxiety, low BS, dehydration etc. Since the DDX is so wide I defer this work up to her PCP who she will be seeing soon - but she can experiment with the bentyl to see if this is the source. Return office visit in 3 months to see how she is doing Coding Level of Care Code Est Pt Level 3 (68766) Diagnoses Irritable bowel syndrome with diarrhea K58.0 Exocrine pancreatic insufficiency K86.81
[2023-10-21 12:06] VITALS: BP 160/72
== END 2023-10-21 12:32 | disposition home or self-care (01) ==
PROVIDERS: PCP Family Medicine; Visit Provider Nurse Practitioner
DX: K58.0 Irritable bowel syndrome with diarrhea (principal); K86.81 Exocrine pancreatic insufficiency
CPT/HCPCS: 99213

== ENCOUNTER → 2023-10-21 11:56 | Outpatient (BNVA) | payer OTHER, SELFPAY | PROVIDERS: PCP Family Medicine; Visit Provider Nurse Practitioner | DX: K58.0 Irritable bowel syndrome with diarrhea (principal); K86.81 Exocrine pancreatic insufficiency | CPT/HCPCS: 99212 ==

== ENCOUNTER 2023-11-01 15:42 | Outpatient (AMB) | payer OTHER, SELFPAY ==
[2023-11-01 15:55] VITALS: BP 144/86; PULSE 103; O2SAT 97; BMI 35.0
--- NOTE | 2023-11-01 15:55 | A.OFFPC_ITS ---
Vital Signs 11/01/23 15:55 Height 5 ft 5 in Weight 210 lb 2 oz BMI 35.0 BP 144/86 H Blood Pressure Location Lt brachial Position Sitting Pulse 103 H Pulse Source Pulse Oximeter Pulse Oximetry (%) 97 Oxygen Delivery Method Room Air Intake Visit Reasons: CPE Intake Note: Patient is here for her physical today. she states she needs 10 mg tab of the Fluoxetine, has been taking the 20 mg's. Patient states she has been having dizzy spells for the last month or 2, she states she has palpitations. Allergies Sulfa (Sulfonamide Antibiotics) Allergy (Intermediate, Verified 11/01/23 16:02) hives Tobacco use date assessed: 11/01/23 Dental Screening Dental Screen Date: 11/01/23 Did you have a dental visit in the last 12 months?: No Did you have a dental problem in the last 6 months where you did not have access to dental care?: No Was dental information given to patient?: No HPI CPE HPI Details 48 y/o female presents for a CPE with f/ u labs and health maintenance. Labs were drawn 07/12/23. Reviewed labs with pt. Elevated fasting glucose of 101. Triglycerides 82. TC 197. LDL 141. HDL 40. Blood pressure today 144/86, 103p. Had increased her fluoxetine last office visit - she denies any issues with the dose of 20mg daily. Pt reports a cough that's worsened about a month ago. HPI Comments History of Present Illness Details Documentation assistance for Ernesto Castellon MD, was provided by Narendra Chen, Yard Worker on 11/01/2023 4:35 PM EST. I, Dr. Castellon, have read, observed, and verified documentation. [facility] Medical History Immunization counseling Laboratory exam ordered as part of routine general medical examination Annual physical exam Screening for blood or protein in urine Normal physical exam Left sided abdominal pain Thoracic back pain Colon cancer screening Elevated blood pressure reading Symptomatic tonsillar crypt Well adult exam Left low back pain Surgical History H/O colonoscopy History of bronchoscopy History of wisdom tooth extraction Family History Father COPD (chronic obstructive pulmonary disease) Smoker Mother Dementia Social History Housing: Apartment Patient Tobacco Use Status: Never used Tobacco e-Cigarette/Vaping Use: Never Used Second Hand Smoke Exposure: Yes service: No Current occupational status: unemployed Current occupational exposures/hazards: No Cognitive needs: No Hearing needs: No Vision needs: No Questionnaire PHQ-9 Over the last 2 weeks, how often have you been bothered by any of the following problems? 1. Little interest or pleasure in doing things: not at all 2. Feeling down, depressed, or hopeless: several days 3. Trouble falling or staying asleep, or sleeping too much: more than half the days 4. Feeling tired or having little energy: nearly every day 5. Poor appetite or overeating: several days 6. Feeling bad about yourself - or that you are a failure or have let yourself or your family down: several days 7. Trouble concentrating on things, such as reading the newspaper or watching television: not at all 8. Moving or speaking so slowly that other people could have noticed. Or the opposite - being so fidgety or restless that you have been moving around a lot more than usual: not at all 9. Thoughts that you would be better off or of hurting yourself in some way: not at all Total score: 8 Source: Developed by Drs. Jimmie Suresh, Emilie Dudley, Eddie Gusman and colleagues, with an educational sohail from [employer]. Thrive Questionnaire Date Thrive assessed: 11/25/22 AUDIT C Alcohol Use Questionnaire (AUDIT-C) 1. How often do you have a drink containing alcohol?: Never 3. How often do you have six or more drinks on one occasion?: Never Total Score: 0 TRACEE-7 AMB Questionnaire TRACEE-7 Date TRACEE - 7 assessed: 11/01/23 Feeling nervous, anxious, or on edge: 1 = Several days Not being able to stop or control worryin = Several days Worrying too much about different things: 0 = Not at all Trouble relaxin = Several days Being so restless that it is hard to sit still: 0 = Not at all Becoming easily annoyed or irritable: 0 = Not at all Feeling afraid as if something awful might happen: 0 = Not at all Total TRACEE-7 score (0-4 normal; 5-9 mild; 10-14 moderate; 15-21 severe): 3 Source: Developed by Drs. Jimmie Suresh, Emilie Dudley, Eddie Gusman and colleagues, with an educational sohail from [employer]. ACT Questionnaire In the past 4 weeks, how much of the time did your asthma keep you from getting as much done at work, school or at home?: A little of the time During the past 4 weeks, how often have you had shortness of breath?: 1-2 times a week During the past 4 weeks, how often did your asthma symptoms wake you up at night or earlier than usual in the morning?: Not at all During the past 4 weeks, how often have you had to use your rescue inhaler or nebulizer medication?: 2-3 times a week How would you rate your asthma control during the past 4 weeks?: Somewhat controlled Score: 19 Review of Systems Const Denies chills, Denies fatigue, Denies fever(s), Denies headache(s) and Denies weakness Eyes Denies change in vision ENT Denies dizziness, Denies headache(s), Denies hearing loss, Denies nasal congestion, Denies sinus pain, Denies sinus pressure and Denies sore throat Card Denies chest pain, Denies lightheadedness, Denies dyspnea and Denies other (palpitations) Resp Denies cough, Denies dyspnea and Denies wheezing GI Denies abdominal pain, Denies melena, Denies hematochezia, Denies change in bowel habits, Denies dyspepsia and Denies nausea Denies hematuria and Denies dysuria Musc Denies abnormal gait, Denies myalgias, Denies arthralgias, Denies numbness and Denies tingling Skin/Breast Denies rash, Denies unusual bruising and Denies wounds Neuro Denies abnormal gait, Denies dizziness, Denies headache(s), Denies memory loss, Denies numbness, Denies Sensory deficit (Neuro), Denies tingling and Denies weakness Psych Denies anxiety, Denies depression and Denies memory loss Endo Denies cold intolerance, Denies fatigue, Denies heat intolerance, Denies polydipsia and Denies polyuria Alex/Lymph Denies easy bleeding and Denies easy bruising Aller/Immun Denies wheezing Physical exam (Primary Care) Vital Signs: Last Vital Signs Pulse 103 H 11/01/23 15:55 BP 144/86 H 11/01/23 15:55 Pulse Ox 97 11/01/23 15:55 Oxygen Delivery Method Room Air 11/01/23 15:55 BMI result Body Mass Index 35.0 Tobacco/Smoking Status: Tobacco use Status Tobacco use date assessed 11/01/23 11/01/23 16:15 Patient Tobacco Use Status Never used Tobacco 11/01/23 15:59 e-Cigarette/Vaping Use Never Used 11/01/23 15:59 PHQ-9: PHQ-9 Score PHQ-9: Total score 8 11/01/23 16:24 Thrive Assessment: Date of Thrive Assessment Date Thrive assessed 11/25/22 11/01/23 15:59 Const General: no acute distress, well developed, alert and awake Nutritional Appearance: well nourished Orientation/consciousness: patient oriented x3 HENMT Head: Yes normocephalic and Yes atraumatic Ears: hearing grossly normal bilaterally and TM's normal bilaterally General nose exam: Normal external nose present and Normal nares present Mouth: Normal oral and palatal mucosa present and moist mucous membranes Teeth and gingiva: dentition normal Throat: Yes posterior oropharynx normal Eyes General: appearance normal, both eyes and all related structures Pupils: Equal, round and reactive pupils present and Pupil accommodation reflex normal EOM: EOMs intact bilaterally Neck Neck: Yes normal visual inspection, Yes no lymphadenopathy and Yes trachea midline Thyroid: Thyroid normal Carotids: no bruits Lymphatic: no lymphadenopathy noted Chest Chest palpation & inspection: normal inspection of the chest Resp Effort & Inspection: normal respiratory effort Auscultation: clear to auscultation bilaterally Cardio Rate: regular rate Rhythm: regular rhythm Heart sounds: S1 normal heart sound present, S2 normal heart sound present, no gallops, no murmurs and no rubs Bruits: no abdominal aortic bruits and no carotid bruits GI Palpation (GI): No Abdominal aortic bruit present, Soft to palpation, nontender, No hepatosplenomegaly present and No Rebound tenderness present Auscultation: normal bowel sounds General: Yes no CVA tenderness Back/Spine/Pelvis Back: no CVA tenderness Cervical Spine: cervical ROM normal and No Cervical spine tenderness Thoracic/Lumbar Spine: thoraco-lumbar ROM normal, No pain with thoraco-lumbar ROM, No thoracic spinal tenderness and No lumbar spinal tenderness Skin Lesions: no lesions Rashes: no rashes Trauma: no lacerations or abrasions Wounds: no wounds Nails: normal Neuro General: patient oriented x3 Cranial nerves: Yes Equal, round and reactive pupils present Cognition (Neuro): normal cognition Gait exam (Neuro): Normal gait present Motor exam (neuro): 5/5 motor strength present throughout Sensory Exam: No Sensory deficit (Neuro) Deep tendon reflexes (DTR's): Right patellar reflex intensity grade: 2+ and Left patellar reflex intensity grade: 2+ Extrem General: Yes normal to inspection and No edema Psych Appearance: grossly normal Affect: normal affect Attitude: cooperative Thought process: Normal thought process present Assessment and Plan Assessment & Plan (1) HTN (hypertension): Code(s): I10 - Essential (primary) hypertension Plan: Blood?pressure?is?high. 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 (4) Breast cancer screening by mammogram: Code(s): Z12.31 - Encounter for screening mammogram for malignant neoplasm of breast Plan: Due?for?mammogram.??Ordered (5) Colon cancer screening: Code(s): Z12.11 - Encounter for screening for malignant neoplasm of colon Plan: Patient?says?she?had?a?colonoscopy?about?8?years?ago?was?told?to?follow- up?in?10?years. She?is?followed?by?Gastroenterology?at?[facility] [place] (6) Adult general medical exam: Code(s): Z00.00 - Encounter for general adult medical examination without abnormal findings Plan: 48-year-old?female?presents?for?an?extended?exam Encouraged?healthy?diet (7) Asthma, moderate persistent: Code(s): J45.40 - Moderate persistent asthma, uncomplicated Plan: Continue?albuterol?as?needed?and?start?Symbicort. (8) Anxiety and depression: Code(s): F41.9 - Anxiety disorder, unspecified; F32.9 - Major depressive disorder, single episode, unspecified Plan: Mood?is?improved?on?increased?fluoxetine,?30?mg?daily Continue?fluoxetine?30?mg?daily (9) Cough: Code(s): R05.9 - Cough, unspecified Plan: Cough?with?increased?secretions?and?mild?bloody?sputum. Coarse?breath?sounds?but?no?decreased/diminished?breath?sounds?or?evidence?of?pn eumonia Likely?bronchitis Start?Z-Juan?and?short?course?of?prednisone Check?chest?x-ray Orders: Orders Cyclic Citrullinated Peptide Today M79.89 - Other specified soft tissue disorde rs MM tomosynthesis screening BI Today Z12.31 - Encounter for screening mammogram for malignant neoplasm of breast Lipid Panel Today E78.00 - Pure hypercholesterolemia, unspecified, Z00.00 - Encounter for general adult medical examination without abnormal findings Rheumatoid Factor Today M79.89 - Other specified soft tissue disorders ALEXA Reflex Titer and Pattern Today M79.89 - Other specified soft tissue disorders Comprehensive Warren. Panel Fast Today Z00.00 - Encounter for general adult medical examination without abnormal findings, Z68.33 - Body mass index [BMI] 33.0-33.9, adult XR chest 2V Today R05.9 - Cough, unspecified Referrals Rheumatology Referral M25.569 - Pain in unspecified knee, M79.89 - Other specified soft tissue disorders Medications: New fluoxetine 30 mg (1.5 x 20 mg) PO DAILY 90 days 135 tabs 2RF azithromycin (Zithromax Z-Juan) take 500 mg today (day 1), then 250 mg for 4 days (days 2-5) PO 5 days 6 tabs 0RF prednisone 40 mg (2 x 20 mg) PO DAILY 5 days 10 tabs 0RF budesonide-formoterol 80-4.5 mcg/actuation (Symbicort) 1 inh inhalation BID 30 days 10.2 grams 2RF Changed From losartan corrected rx 25 mg PO DAILY 90 tabs 3RF I10 - Essential (primary) hypertension To losartan corrected rx 50 mg PO DAILY 90 days 90 tabs 3RF I10 - Essential (primary) hypertension Discontinued fluoxetine Fluoxetine total daily dose 30mg Discontinued Reason: Doctor's Order 10 mg PO DAILY 30 days 30 caps 3RF Coding Level of Care Code Est Pt Level 4 (73034) Diagnoses HTN (hypertension) I10 Hypercholesterolemia E78.00 Screening for cervical cancer Z12.4 Breast cancer screening by mammogram Z12.31 Colon cancer screening Z12.11 Adult general medical exam Z00.00 Asthma, moderate persistent J45.40 Anxiety and depression F41.9; F32.9 Cough R05.9
== END 2023-11-01 16:48 | disposition home or self-care (01) ==
PROVIDERS: PCP Hospitalist; Visit Provider Family Medicine
DX: Z00.00 Encounter for general adult medical examination without abnormal findings (principal); R05.9 Cough, unspecified; J45.40 Moderate persistent asthma, uncomplicated; E78.00 Pure hypercholesterolemia, unspecified; I10 Essential (primary) hypertension; F41.9 Anxiety disorder, unspecified; F32.9 Major depressive disorder, single episode, unspecified
CPT/HCPCS: 99214; 99396

== ENCOUNTER 2023-11-04 14:14 | Outpatient (REF) | payer OTHER, SELFPAY ==
--- NOTE | ~2023-11-04 | XR_ITS ---
EXAMINATION: XR CHEST CLINICAL INFORMATION: Cough. COMPARISON: November 12, 2013. TECHNIQUE: 2 views of the chest were obtained. FINDINGS: Lung volumes are low. Mild S-shaped thoracolumbar scoliosis. Heart size is normal. There is no gross pneumothorax. No pleural effusion. Increased mild retrocardiac opacities with lower lung volumes may be related to subsegmental atelectasis, an inflammatory/infectious process could also be considered. XR/XR chest 2V IMPRESSION: Increased mild retrocardiac opacities with lower lung volumes may be related to subsegmental atelectasis, an inflammatory/infectious process could also be considered.
== END 2023-11-04 14:15 | disposition home or self-care (01) ==
LOC: HO.XRAY 14:14
PROVIDERS: PCP Family Medicine; Visit Provider Family Medicine
DX: R05.9 Cough, unspecified (principal)
CPT/HCPCS: 71046

== ENCOUNTER 2023-12-27 12:20 | Outpatient (REF) | payer OTHER, SELFPAY ==
[2023-12-27 13:29] LABS: Appearance Urine Cloudy; Color Urine Yellow; Glucose Urine UA Negative (Negative); Leukocyte Esterase Urine Moderate (2+) (Negative); Nitrite Urine Negative (Negative); PH 5.5 (5.0-9.0); UMIC TRIGGER UA YES; Urine Blood Negative (Negative); Urine Ketones Negative (Negative); Urine Protein Trace mg/dL (Neg-Trace)
[2023-12-27 13:31] LABS: Bacteria Urine 2+ (None Seen); Hyaline Casts Urine 0-2 /LPF (0-2); RBC Urine 0-2 /HPF (0-2); Squamous Epithelial Cell Urine >20 /HPF (0-2); WBC Urine >50 /HPF (0-5)
[2023-12-27 14:13] LABS: Alanine Aminotransferase 20 U/L (0-31); Albumin Level 4.3 g/dL (3.5-5.0); Alkaline Phosphatase 92 U/L (39-117); Anion Gap 14 (12-20); Aspartate Amino Transferase 16 U/L (5-31); Bilirubin Total 0.6 mg/dL (0.0-1.0); Blood Urea Nitrogen 10 mg/dL (9-16); Calcium 9.4 mg/dL (8.4-10.2); Carbon Dioxide 21 mmol/L (22-29); Chloride 107 mmol/L (96-108); Cholesterol 209 mg/dL (<200); Estimated Glomerular Filt Rate > 60; Glucose Fasting 96 mg/dL (60-99); HDL Cholesterol 42 mg/dL (>40); LDL Cholesterol Calculated 148 mg/dL (<100); Potassium 3.8 mmol/L (3.3-5.1); Sodium 138 mmol/L (135-145); Triglycerides 97 mg/dL (<150)
[2023-12-27 14:20] LABS: Rheumatoid Factor < 13.0 IU/mL (<15.0)
[2023-12-28 15:48] LABS: Cyclic Citrullinated Peptide <16 UNITS
[2024-01-03 13:12] LABS: Anti Nuclear Antibody Pattern Nuclear, Homogeneous; Anti Nuclear Antibody Screen POSITIVE (NEGATIVE); Anti Nuclear Antibody Titer 1:40 titer
== END 2023-12-27 12:21 | disposition home or self-care (01) ==
LOC: HO.LAB 12:20
PROVIDERS: PCP Family Medicine; Visit Provider Family Medicine
DX: Z00.00 Encounter for general adult medical examination without abnormal findings (principal); M79.89 Other specified soft tissue disorders; E78.00 Pure hypercholesterolemia, unspecified; Z68.33 Body mass index [BMI] 33.0-33.9, adult
CPT/HCPCS: 36415; 80053; 80061; 81001; 86038; 86039; 86200; 86431

== ENCOUNTER 2024-01-05 15:33 | Outpatient (AMB) | payer OTHER, SELFPAY ==
[2024-01-05 15:39] VITALS: BP 142/82; PULSE 111; O2SAT 98; BMI 34.2
--- NOTE | 2024-01-05 15:39 | A.OFFPC_ITS ---
Vital Signs 01/05/24 15:39 Height 5 ft 5 in Weight 205 lb 8 oz BMI 34.2 BP 142/82 H Blood Pressure Location Lt brachial Position Sitting Pulse 111 H Pulse Source Pulse Oximeter Pulse Oximetry (%) 98 Oxygen Delivery Method Room Air Intake Visit Reasons: f/u chronic conditions Intake Note: Patient is here to follow up on chronic conditions today. Allergies Sulfa (Sulfonamide Antibiotics) Allergy (Intermediate, Verified 01/05/24 15:41) hives Medication List - Last Reconciled 01/05/24 by Ernesto Castellon MD acetaminophen (Tylenol Extra Strength) 500 mg PO Q6H PRN albuterol sulfate 90 mcg/actuation (ProAir HFA) 2 puffs inhalation Q4-6H PRN atorvastatin 20 mg PO BEDTIME 90 days blood pressure monitor (Blood Pressure Kit) monitor bp daily and when not feeling well budesonide-formoterol 80-4.5 mcg/actuation (Symbicort) 1 inh inhalation BID 30 days clonidine HCl 0.1 mg PO TID PRN dicyclomine 20 mg PO QID 30 days eluxadoline (Viberzi) 100 mg PO BID fluoxetine 30 mg (1.5 x 20 mg) PO DAILY 90 days [id number]-[id number] 24,000-76,000 -120,000 unit (Creon) 2 caps PO QID 30 days loperamide (Anti-Diarrheal (loperamide)) mg PO losartan 50 mg PO DAILY 90 days medroxyprogesterone 150 mg IM [id number] metoprolol succinate ER 25 mg PO DAILY 90 days nitrofurantoin monohyd/m-cryst 100 mg (Macrobid) 100 mg PO BID 7 days Tobacco use date assessed: 06/28/23 Dental Screening Dental Screen Date: 11/01/23 HPI f/u chronic conditions HPI Details 48 y/o female presents to f/u hypertensi on and hyperlipidemia. Had increased her losartan. Labs were drawn 12/27/23. Reviewed labs with pt. Triglycerides 97. TC 209. LDL 148. HDL 42. Some urine in bacteria. She denies any dysuria but does note she has to go more often. Blood pressure today is 142/82, 111p. She is on losartan 50mg daily. [facility] Medical History (Updated 01/05/24 @ 15:58 by Narendra Chen) Colon cancer screening Immunization counseling Laboratory exam ordered as part of routine general medical examination Annual physical exam Screening for blood or protein in urine Normal physical exam Left sided abdominal pain Thoracic back pain Elevated blood pressure reading Symptomatic tonsillar crypt Well adult exam Left low back pain Surgical History H/O colonoscopy History of bronchoscopy History of wisdom tooth extraction Family History Father COPD (chronic obstructive pulmonary disease) Smoker Mother Dementia Social History Housing: Apartment Patient Tobacco Use Status: Never used Tobacco e-Cigarette/Vaping Use: Never Used Second Hand Smoke Exposure: Yes service: No Current occupational status: unemployed Current occupational exposures/hazards: No Cognitive needs: No Hearing needs: No Vision needs: No Questionnaire Thrive Questionnaire Date Thrive assessed: 11/25/22 TRACEE-7 AMB Questionnaire TRACEE-7 Date TRACEE - 7 assessed: 11/25/22 Source: Developed by Drs. Jimmie Suresh, Emilie Dudley, Eddie Gusman and colleagues, with an educational sohail from [employer]. Review of Systems Const Denies chills, Denies fatigue, Denies fever(s), Denies headache(s) and Denies weakness ENT Denies dizziness and Denies headache(s) Card Denies chest pain, Denies lightheadedness, Denies dyspnea and Denies other (Palpitations) Resp Denies cough, Denies dyspnea, Denies wheezing and Denies other ( shortness of breath) Musc Denies numbness and Denies tingling Neuro Denies dizziness, Denies headache(s), Denies numbness, Denies tingling, Denies paresthesias and Denies weakness Psych Denies anxiety and Denies depression Endo Denies fatigue Aller/Immun Denies wheezing Physical exam (Primary Care) Vital Signs: Last Vital Signs Pulse 111 H 01/05/24 15:39 BP 142/82 H 01/05/24 15:39 Pulse Ox 98 01/05/24 15:39 Oxygen Delivery Method Room Air 01/05/24 15:39 BMI result Body Mass Index 34.2 Tobacco/Smoking Status: Tobacco use Status Tobacco use date assessed 06/28/23 01/05/24 15:41 Patient Tobacco Use Status Never used Tobacco 01/05/24 15:41 e-Cigarette/Vaping Use Never Used 01/05/24 15:41 Thrive Assessment: Date of Thrive Assessment Date Thrive assessed 11/25/22 01/05/24 15:41 Const General: no acute distress and well developed Nutritional Appearance: well nourished Orientation/consciousness: patient oriented x3 HENMT Head: Yes normocephalic and Yes atraumatic Eyes General: appearance normal, both eyes and all related structures Pupils: Equal, round and reactive pupils present EOM: EOMs intact bilaterally Resp Effort & Inspection: normal respiratory effort Auscultation: clear to auscultation bilaterally Cardio Rate: tachycardic Rhythm: regular rhythm Heart sounds: S1 normal heart sound present, S2 normal heart sound present, no gallops, no murmurs and no rubs Neuro General: patient oriented x3 and gait normal Cranial nerves: Yes Equal, round and reactive pupils present Psych Affect: normal affect Assessment and Plan Assessment & Plan (1) HTN (hypertension): Code(s): I10 - Essential (primary) hypertension Plan: Blood?pressure?is?still?too?high?despite?increasing?losartan Also?some?tachycardia Will?add?metoprolol Continue?losartan Follow-up?in?3?months (2) Hypercholesterolemia: Code(s): E78.00 - Pure hypercholesterolemia, unspecified Plan: LDL?cholesterol?is?too?high Start?atorvastatin Will?recheck?prior?to?next?visit?in?3?months (3) Numbness and tingling: Code(s): R20.0 - Anesthesia of skin; R20.2 - Paresthesia of skin Plan: Atypical?numbness?and?tingling?at?left?thumb?and?great?toe No?neck?pain No?weakness Normal?exam She?was?wondering?if?this?might?be?secondary?to?lupus.??We?discussed?that?I?do?n ot?think? it?is?related?to?lupus.??However?she?has?an?appointment?with?rheumatology. May?be?secondary?to?anxiety She?can?try?B12?supplementation?for?nerve?protection. If?worsening?she?will?let?me?know.??Could?refer?for?EMG (4) Urinary frequency: Code(s): R35.0 - Frequency of micturition Plan: Urinary?frequency?and?hazy?urine?with?bacteria?present Sending?a?script?for?Macrobid Orders: Orders Microalbumin, Random (w Creat) Today I10 - Essential (primary) hypertension Comprehensive [place]. Panel Fast Today E78.00 - Pure hypercholesterolemia, unspecified, Z00.00 - Encounter for general adult medical examination without abnormal findings Lipid Panel Today E78.00 - Pure hypercholesterolemia, unspecified, Z00.00 - Encounter for general adult medical examination without abnormal findings UA and rflx microscopic Today R35.0 - Frequency of micturition, Z00.00 - Encounter for general adult medical examination without abnormal findings Medications: New atorvastatin 20 mg PO BEDTIME 90 days 90 tabs 2RF metoprolol succinate ER 25 mg PO DAILY 90 days 90 tabs 2RF nitrofurantoin monohyd/m-cryst 100 mg (Macrobid) must administer with a meal/food 100 mg PO BID 7 days 14 caps 0RF Coding Level of Care Code Est Pt Level 4 (66972) Diagnoses HTN (hypertension) I10 Hypercholesterolemia E78.00 Numbness and tingling R20.0; R20.2 Urinary frequency R35.0
== END 2024-01-05 16:04 | disposition home or self-care (01) ==
PROVIDERS: PCP Family Medicine; Visit Provider Family Medicine
DX: I10 Essential (primary) hypertension (principal); E78.00 Pure hypercholesterolemia, unspecified; R20.0 Anesthesia of skin; R20.2 Paresthesia of skin; R35.0 Frequency of micturition
CPT/HCPCS: 99214

== ENCOUNTER 2024-01-18 13:33 | Outpatient (REF) | payer OTHER, SELFPAY ==
--- NOTE | ~2024-01-18 | XR_ITS ---
EXAMINATION: XR BILATERAL HANDS CLINICAL INFORMATION: Pain. COMPARISON: None available. TECHNIQUE: 3 views of each hand. FINDINGS: RIGHT HAND: Bone mineralization is normal. Mild degenerative changes in the first carpometacarpal joint. LEFT HAND: Bone mineralization is normal. Mild degenerative changes in the first carpometacarpal joint XR/XR hand LT 2V IMPRESSION: Mild degenerative changes in the bilateral first carpometacarpal joints. No displaced fracture. Recommend follow up imaging in 10-14 days if fracture is suspected.
--- NOTE | ~2024-01-18 | XR_ITS ---
Exam: X-rays bilateral knees INDICATION: Pain in bilateral knees COMPARISON: None TECHNIQUE: 3 views of each knee. FINDINGS: Left knee: Trace joint effusion. Mild narrowing of the lateral compartment with tiny lateral marginal osteophytes. Mild degenerative changes in the patellofemoral compartment. Right knee: Mild narrowing of the medial compartment. Tiny tricompartmental osteophytes. Trace joint effusion. XR/XR knee RT 3V IMPRESSION: Mild degenerative changes in the bilateral knees.
--- NOTE | ~2024-01-18 | XR_ITS ---
Exam: X-rays bilateral knees INDICATION: Pain in bilateral knees COMPARISON: None TECHNIQUE: 3 views of each knee. FINDINGS: Left knee: Trace joint effusion. Mild narrowing of the lateral compartment with tiny lateral marginal osteophytes. Mild degenerative changes in the patellofemoral compartment. Right knee: Mild narrowing of the medial compartment. Tiny tricompartmental osteophytes. Trace joint effusion. XR/XR knee LT 3V IMPRESSION: Mild degenerative changes in the bilateral knees.
--- NOTE | ~2024-01-18 | XR_ITS ---
EXAMINATION: XR BILATERAL HANDS CLINICAL INFORMATION: Pain. COMPARISON: None available. TECHNIQUE: 3 views of each hand. FINDINGS: RIGHT HAND: Bone mineralization is normal. Mild degenerative changes in the first carpometacarpal joint. LEFT HAND: Bone mineralization is normal. Mild degenerative changes in the first carpometacarpal joint XR/XR hand RT 2V IMPRESSION: Mild degenerative changes in the bilateral first carpometacarpal joints. No displaced fracture. Recommend follow up imaging in 10-14 days if fracture is suspected.
[2024-01-18 15:24] LABS: MANUAL DIFF FLAG NO
[2024-01-18 15:49] LABS: Basophils Percent Auto 0.3 % (0-2); Eosinophils Absolute Auto 0.1 X10*3/uL (0.0-0.4); Eosinophils Percent Auto 0.9 % (0-4); Hematocrit 42.7 % (37.0-47.0); Hemoglobin 14.4 g/dl (12.0-16.0); Imm Gran Abs Auto 0.03 X10*3/uL (0.00-0.03); Imm Gran Pct Auto 0.5 % (0.0-0.4); Lymphocytes Absolute Auto 1.2 X10*3/uL (1.2-4.9); Lymphocytes Percent Auto 19.1 % (20-40); Mean Corpuscular HGB Conc 33.7 g/dl (31.0-35.0); Mean Corpuscular Hemoglobin 30.3 pg (27.0-33.0); Mean Corpuscular Volume 89.9 fL (80.0-98.0); Mean Platelet Volume 10.2 fL (9.4-12.3); Monocytes Absolute Auto 0.3 X10*3/uL (0.1-1.2); Monocytes Percent Auto 5.1 % (2-11); Neutrophils Absolute Auto 4.7 x10*3/uL (2.0-8.3); Neutrophils Percent Auto 74.1 % (45-73); Platelet Count 259 X10*3/uL (160-400); Red Blood Count 4.75 X10*6/uL (4.20-5.50); Red Cell Distribution Width 13.9 % (11.0-16.0); White Blood Count 6.3 X10*3/uL (4.8-10.8)
[2024-01-18 16:16] LABS: Alanine Aminotransferase 19 U/L (0-31); Albumin Level 4.4 g/dL (3.5-5.0); Alkaline Phosphatase 91 U/L (39-117); Anion Gap 13 (12-20); Aspartate Amino Transferase 16 U/L (5-31); Bilirubin Total 0.6 mg/dL (0.0-1.0); Blood Urea Nitrogen 12 mg/dL (9-16); C Reactive Protein 0.19 mg/dL (< or = 0.50); Calcium 9.7 mg/dL (8.4-10.2); Carbon Dioxide 20 mmol/L (22-29); Chloride 110 mmol/L (96-108); Estimated Glomerular Filt Rate > 60; Glucose Random 117 mg/dL (60-115); Potassium 3.7 mmol/L (3.3-5.1); Sodium 139 mmol/L (135-145); Total Protein 7.9 g/dL (6.5-8.0)
[2024-01-18 16:32] LABS: Erythrocyte Sedimentation Rate 30 MM/HR (0-20)
[2024-01-19 04:20] LABS: HBS Num1 8.22 mIU/mL (0-7.99); HBc Num1 0.11 S/CO (0.00-0.79); HBsAGNum1 0.26 S/CO (0.00-0.99); Hepatitis A Antibody IgM 0.15 Index (0-0.79); Hepatitis B Core Antibody Nonreactive (Nonreactive); Hepatitis B Surface Antigen Negative (Negative); ~HepC Num1 0.19 S/CO (0.00-0.79); ~Hepatitis A Antibody IgM Nonreactive (Nonreactive); ~Hepatitis C Antibody Nonreactive (Nonreactive)
[2024-01-19 05:03] LABS: HBS Num3 7.79 mIU/mL (0-7.99); ~Hepatitis B Surface Antibody GRAYZONE (Nonreactive)
[2024-01-19 18:44] LABS: Thyroid Peroxidase Antibodies <1 IU/mL (<9)
[2024-01-19 19:43] LABS: Anti-Centromere B Antibodies <1.0 NEG AI (<1.0 NEG)
[2024-01-19 19:48] LABS: Prot Elec - Albumin 4.2 g/dL (3.8-4.8); Prot Elec - Alpha1 0.3 g/dL (0.2-0.3); Prot Elec - Alpha2 0.9 g/dL (0.5-0.9); Prot Elec - Beta 1 0.5 g/dL (0.4-0.6); Prot Elec - Beta 2 0.5 g/dL (0.2-0.5); Prot Elec - Gamma 1.2 g/dL (0.8-1.7); Prot Elec - Total Protein 7.5 g/dL (6.1-8.1)
[2024-01-19 21:09] LABS: Anti DNA DS Antibody 1 IU/mL; SM/Ribonucleoprotein Ab <1.0 NEG AI (<1.0 NEG); Smith Protein <1.0 NEG AI (<1.0 NEG)
[2024-01-19 22:48] LABS: Complement C3 194 mg/dL (83-193)
[2024-01-21 17:43] LABS: TS Negative Control Passed; TS Panel A 0; TS Panel B 0; TS Positive Control Passed; TSpotTB Negative (Negative)
[2024-01-21 18:17] LABS: HLA B27 Negative (Negative)
[2024-01-23 15:58] LABS: IgA 256 mg/dL (47-310); IgG 1375 mg/dL (600-1640); IgM 104 mg/dL (50-300)
[2024-01-24 06:24] LABS: Mitochondrial Antibodies NEGATIVE (NEGATIVE)
[2024-01-24 06:32] LABS: Thyroglobulin Antibodies <1 IU/mL (< or = 1)
[2024-01-25 14:04] LABS: Smooth Muscle Antibody <20 U (<20)
[2024-01-25 14:57] LABS: Aldolase 5.3 U/L (<=8.1)
== END 2024-01-18 13:34 | disposition home or self-care (01) ==
LOC: HO.LAB 13:33
PROVIDERS: PCP Family Medicine; Visit Provider Nurse Practitioner Family
DX: Z11.9 Encounter for screening for infectious and parasitic diseases, unspecified (principal); M79.641 Pain in right hand; M79.642 Pain in left hand; M25.561 Pain in right knee; M25.562 Pain in left knee; G89.29 Other chronic pain; M13.80 Other specified arthritis, unspecified site; Z79.60 Long term (current) use of unspecified immunomodulators and immunosuppressants; Z87.2 Personal history of diseases of the skin and subcutaneous tissue
CPT/HCPCS: 36415; 73120; 73562; 80053; 82085; 82550; 82784; 84165; 85025; 85652; 86015; 86140; 86160; 86225; 86235; 86334; 86376; 86381; 86481; 86704; 86706; 86709; 86800; 86803; 86812; 87340; 99202

== ENCOUNTER 2024-01-18 13:33 | Outpatient (AMB) | payer OTHER, SELFPAY ==
[2024-01-18 13:37] VITALS: BP 130/70; PULSE 92; BMI 34.4
--- NOTE | 2024-01-18 13:37 | MHC.OFFVIS ---
Vital Signs 01/18/24 13:37 Height 5 ft 5 in Weight 207 lb 0.225 oz BMI 34.4 BP 130/70 Blood Pressure Location Rt brachial Position Sitting Pulse 92 Pulse Source Pulse Oximeter Intake Visit Reasons: Knee pain Intake Note: New patient, internally referred, presents to office today for - Left knee pain. Symptoms: Hard to get up, uncomfortable Pain began approx: 2016 Has tried: OTC Tylenol and Aleve, heating and cooling pads. 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 Norris 48 yoF referred by PCP for pain in left knee, which she describes as deep achy and sharp. The pain is especially felt when getting up and putting pressure on it and when walking. Her hands, at the PIP are painful when bent and this has been happening since this past year; numbness and tingling from upper arm to thumb. She says it takes 30 minutes to about an hour for her hands to loosen up from morning stiffness. --Saw Dr. Bolaños in 2018 - Dx of Seronegative Inflammatory Arthritis considered - treated with Meloxicam 10mg 07/18/2017; Duloxetine 08/17/2017; Nubemetone 750 mg,' Bone Scan (Whole Body) 02/2018 unremarkable; -veCCP, -ve RF, --left big toe numbness and tingling. Tried MTX 10 mg and was considered for Enbrel but insurance denied. --rashes - has Psoriasis in scalp and above eye lids. - uses over the counter creams and Vaseline - last saw DERM years ago who says ir was eczema or PsO --denies uveiitis --grand aunt has UC; grandma has lupus. --plantar fasciitis hx, left plantar fascia insertion - received injections (cortisone and lidocaine)in heel where it was very swollen. This was resolved - about 05/2018; Helped also by 40mg Depo-Medrol. --Knee pain - 2018 - cortisone injection - help for about 2 weeks but ROS since then- ongoing pain, no swelling. --follows with GI - for IBS and pancreatic insufficiency - takes Creon --no planned -- recent asthma flare in october - Chest xray done [facility] History (Updated 01/18/24 @ 14:44 by Orquidea Rene [facility]) Long-term use of immunosuppressant medication Seronegative inflammatory arthritis Screening examination for infectious disease History of psoriasis Bilateral hand pain Bilateral chronic knee pain Colon cancer screening Immunization counseling Laboratory exam ordered as part of routine general medical examination Annual physical exam Screening for blood or protein in urine Normal physical exam Left sided abdominal pain Thoracic back pain Elevated blood pressure reading Symptomatic tonsillar crypt Well adult exam Left low back pain Surgical History H/O colonoscopy History of bronchoscopy History of wisdom tooth extraction Family History Father COPD (chronic obstructive pulmonary disease) Smoker Mother Dementia Social History Housing: Apartment Patient Tobacco Use Status: Never used Tobacco e-Cigarette/Vaping Use: Never Used Second Hand Smoke Exposure: Yes service: No Current occupational status: unemployed Current occupational exposures/hazards: No Cognitive needs: No Hearing needs: No Vision needs: No Review of Systems Const All systems reviewed & are unremarkable except as noted in HPI and below Physical Exam Vital Signs: Last Vital Signs Pulse 92 01/18/24 13:37 BP 130/70 01/18/24 13:37 BMI result Body Mass Index 34.4 APPEARANCE: Patient in no acute distress EYES no redness, normal EARS:? External ear normal. NOSE/SINUS:? Airflow through both nares, no nasal discharge, no bleeding THROAT:? Oral mucosa moist, no ulcerations NECK:? No thyromegaly or masses, no adenopathy, trachea midline. HEART:? Regular rhythm, S1-S2 heard, no murmurs, rubs or gallops. LUNG:? Clear to percussion and auscultation EXTREMITIES:? No edema, no calf tenderness, normal peripheral pulses. NEURO:? Oriented and alert x3.? No focal weakness.? Reflexes symmetric.? Gait normal. SKIN:? There are no skin lesions evident. No objective signs of Raynaud's phenomenon. JOINT EXAM: Cervical Spine:.? Full range of motion without pain; no tenderness. Thoracic Spine:.? No scoliosis.? No tenderness on palpation. Lumbar Spine:.? Alignment normal.? Full range of motion without pain, no tenderness. Chest Wall:.? No tenderness, swelling, increased warmth or erythema. Hands:.? Normal pain-free range of motion with tenderness to bilateral CMC joints and some DIPs but no swelling, increased warmth or erythema. Able to make a full fist and has a good hide stretcher hand strength. Wrists:.? Normal pain-free range of motion without tenderness, swelling, increased warmth or erythema. Elbows:. Normal pain-free range of motion with mild lateral tenderness, swelling, increased warmth or erythema. Shoulders:.?? Full range of motion without pain. No tenderness, weakness, swelling, increased warmth or erythema. Hips:.? Full range of motion without pain. Hip bursa:.? No tenderness. Knees:.?? Normal pain-free range of motion without tenderness, swelling, increased warmth or erythema.? There is no effusion or crepitation Ankles:.? Normal pain-free range of motion without tenderness, swelling, increased warmth or erythema. Feet:.? Normal pain-free range of motion without tenderness, swelling, increased warmth or erythema. Tender points:? Mild tenderness to digital palpation at the occiput, trapezius, second rib, lateral epicondyle, knees, greater trochanter and gluteal area bilaterally. ? Results Reviewed Results Reviewed: Laboratory Tests 07/12/23 11:33 WBC 5.8 Hgb 15.0 Hct 45.1 Plt Count 266 Amylase 43 [address]ase [address] ABD AND PELVIS 12/24/22 FINDINGS: LUNG BASES: The visualized lung bases are unremarkable. LIVER, GALLBLADDER, AND BILIARY TREE: The liver is normal in size, shape, and attenuation. No focal hepatic lesion or biliary ductal dilatation is present. The gallbladder is unremarkable with no evidence of radiopaque gallstones, gallbladder wall thickening, or obvious pericholecystic inflammatory changes. PANCREAS: Unremarkable. SPLEEN: Unremarkable. ADRENAL GLANDS: Unremarkable. KIDNEYS AND URETERS: The kidneys are normal in size, shape, and attenuation. No hydronephrosis, hydroureter, or calculi seen. No perinephric stranding. There are at least 2 left renal cysts measuring 2 cm and 1.7 cm in lower pole and a smaller 6 mm cyst lower pole right kidney. BLADDER: Unremarkable. GASTROINTESTINAL TRACT: There is scattered stool and gas seen throughout the colon without distention. The small bowel loops are normal caliber. Appendix is normal caliber. ABDOMINAL WALL: Small umbilical hernia containing fat is noted. LYMPH NODES: Normal. VASCULAR: Unremarkable. PELVIC VISCERA: The uterus is anteverted and appears unremarkable. There is no adnexal mass or free fluid. OSSEOUS STRUCTURES: No aggressive lytic or sclerotic process seen. CT/CT abdomen pelvis w IV con IMPRESSION: 1. No acute intra-abdominal process seen. 2. Bilateral renal cysts. 3. No major change compared to previous study 04/15/2020. Laboratory Tests 12/27/23 01/18/24 12:56 15:22 ESR 30 H Creatinine 0.72 AST 16 ALT 19 Alkaline Phosphatase 91 Total Creatine Kinase 105 C-Reactive Protein 0.19 Total Protein 7.9 Aldolase 5.3 Rheumatoid Factor < 13.0 Cycl Citrul Peptide IgG <16 ALEXA Screen POSITIVE A ALEXA Titer 1:40 H Complement C3 194 H Complement C4 38 HLA-B27 Negative TECHNIQUE: 3 views of each knee. FINDINGS: Left knee: Trace joint effusion. Mild narrowing of the lateral compartment with tiny lateral marginal osteophytes. Mild degenerative changes in the patellofemoral compartment. Right knee: Mild narrowing of the medial compartment. Tiny tricompartmental osteophytes. Trace joint effusion. XR/XR knee LT 3V IMPRESSION: Mild degenerative changes in the bilateral knees. [address] [address] XRay Report Signed Patient: Myrna Ye MR#: [id number] : 1975 Acct:[id number] Age/Sex: 48 / F ADM Date: 01/18/24 Loc: HO.LAB Attending Dr: Orquidea COKER Ordering Physician: Orquidea Rene Date of Service: 01/18/24 Procedure(s): XR hand LT 2V Accession Number(s): [id number] cc: Ernesto Castellon MD; Orquidea Rene~ EXAMINATION: XR BILATERAL HANDS CLINICAL INFORMATION: Pain. COMPARISON: None available. TECHNIQUE: 3 views of each hand. FINDINGS: RIGHT HAND: Bone mineralization is normal. Mild degenerative changes in the first carpometacarpal joint. LEFT HAND: Bone mineralization is normal. Mild degenerative changes in the first carpometacarpal joint XR/XR hand LT 2V IMPRESSION: Mild degenerative changes in the bilateral first carpometacarpal joints. No displaced fracture. Recommend follow up imaging in 10-14 days if fracture is suspected. Assessment & Plan Assessment & Plan (1) Bilateral chronic knee pain: Code(s): M25.561 - Pain in right knee; M25.562 - Pain in left knee; G89.29 - Other chronic pain Category: Medical (2) Bilateral hand pain: Code(s): M79.641 - Pain in right hand; M79.642 - Pain in left hand Category: Medical (3) History of psoriasis: Code(s): Z87.2 - Personal history of diseases of the skin and subcutaneous tissue Category: Medical (4) Seronegative inflammatory arthritis: Code(s): M13.80 - Other specified arthritis, unspecified site Category: Medical (5) Long-term use of immunosuppressant medication: Code(s): 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 I will obtain a Rheum panel and Imaging of her hands and knees for further evaluation. Referral labs included weak +ALEXA 1:40, Negative CCP and RF. She can continue to use Tylenol 650 mg as prescribed. We will discuss more at next visit after diagnostics. 30 minutes to review history, evaluate patient and document. Orders: Orders XR knee LT 3V 01/18/24 M25.561 - Pain in right knee, M25.562 - Pain in left knee, G89.29 - Other chronic pain, M79.641 - Pain in right hand, M79.642 - Pain in left hand Anti Extractable Nuclear Ag 01/18/24 M79.641 - Pain in right hand, M79.642 - Pain in left hand, M25.561 - Pain in right knee, M25.562 - Pain in left knee, G89.29 - Other chronic pain, Z87.2 - Personal history of diseases of the skin and subcutaneous tissue Complement C4 01/18/24 M79.641 - Pain in right hand, M79.642 - Pain in left hand, M25.561 - Pain in right knee, M25.562 - Pain in left knee, G89.29 - Other chronic pain, Z87.2 - Personal history of diseases of the skin and subcutaneous tissue Comprehensive Met. Panel 01/18/24 M79.641 - Pain in right hand, M79.642 - Pain in left hand, M25.561 - Pain in right knee, M25.562 - Pain in left knee, G89.29 - Other chronic pain, Z87.2 - Personal history of diseases of the skin and subcutaneous tissue Smooth Muscle Antibody 01/18/24 M79.641 - Pain in right hand, M79.642 - Pain in left hand, M25.561 - Pain in right knee, M25.562 - Pain in left knee, G89.29 - Other chronic pain, Z87.2 - Personal history of diseases of the skin and subcutaneous tissue Thyroglobulin Antibodies 01/18/24 M79.641 - Pain in right hand, M79.642 - Pain in left hand, M25.561 - Pain in right knee, M25.562 - Pain in left knee, G89.29 - Other chronic pain, Z87.2 - Personal history of diseases of the skin and subcutaneous tissue Thyroid Peroxidase Antibodies 01/18/24 M79.641 - Pain in right hand, M79.642 - Pain in left hand, M25.561 - Pain in right knee, M25.562 - Pain in left knee, G89.29 - Other chronic pain, Z87.2 - Personal history of diseases of the skin and subcutaneous tissue Aldolase 01/18/24 M79.641 - Pain in right hand, M79.642 - Pain in left hand, M25.561 - Pain in right knee, M25.562 - Pain in left knee, G89.29 - Other chronic pain, Z87.2 - Personal history of diseases of the skin and subcutaneous tissue HLA B27 01/18/24 M79.641 - Pain in right hand, M79.642 - Pain in left hand, M25.561 - Pain in right knee, M25.562 - Pain in left knee, G89.29 - Other chronic pain, Z87.2 - Personal history of diseases of the skin and subcutaneous tissue XR knee RT 3V 01/18/24 M25.561 - Pain in right knee, M25.562 - Pain in left knee, G89.29 - Other chronic pain, M79.641 - Pain in right hand, M79.642 - Pain in left hand XR hand LT 2V 01/18/24 M25.561 - Pain in right knee, M25.562 - Pain in left knee, G89.29 - Other chronic pain, M79.641 - Pain in right hand, M79.642 - Pain in left hand XR hand RT 2V 01/18/24 M25.561 - Pain in right knee, M25.562 - Pain in left knee, G89.29 - Other chronic pain, M79.641 - Pain in right hand, M79.642 - Pain in left hand Erythrocyte Sedimentation Rate 01/18/24 M79.641 - Pain in right hand, M79.642 - Pain in left hand, M25.561 - Pain in right knee, M25.562 - Pain in left knee, G89.29 - Other chronic pain, Z87.2 - Personal history of diseases of the skin and subcutaneous tissue Anti-Centromere B Antibodies 01/18/24 M79.641 - Pain in right hand, M79.642 - Pain in left hand, M25.561 - Pain in right knee, M25.562 - Pain in left knee, G89.29 - Other chronic pain, Z87.2 - Personal history of diseases of the skin and subcutaneous tissue Anti DNA DS Antibody 01/18/24 M79.641 - Pain in right hand, M79.642 - Pain in left hand, M25.561 - Pain in right knee, M25.562 - Pain in left knee, G89.29 - Other chronic pain, Z87.2 - Personal history of diseases of the skin and subcutaneous tissue Complement C3 01/18/24 M79.641 - Pain in right hand, M79.642 - Pain in left hand, M25.561 - Pain in right knee, M25.562 - Pain in left knee, G89.29 - Other chronic pain, Z87.2 - Personal history of diseases of the skin and subcutaneous tissue Complete Blood Count Auto Diff 01/18/24 M79.641 - Pain in right hand, M79.642 - Pain in left hand, M25.561 - Pain in right knee, M25.562 - Pain in left knee, G89.29 - Other chronic pain, Z87.2 - Personal history of diseases of the skin and subcutaneous tissue C Reactive Protein 01/18/24 M79.641 - Pain in right hand, M79.642 - Pain in left hand, M25.561 - Pain in right knee, M25.562 - Pain in left knee, G89.29 - Other chronic pain, Z87.2 - Personal history of diseases of the skin and subcutaneous tissue Immunoglobulins,IgG IgA IgM 01/18/24 M25.561 - Pain in right knee, M25.562 - Pain in left knee, G89.29 - Other chronic pain Immunofixation Pnl, Serum 01/18/24 M79.641 - Pain in right hand, M79.642 - Pain in left hand, M25.561 - Pain in right knee, M25.562 - Pain in left knee, G89.29 - Other chronic pain, Z87.2 - Personal history of diseases of the skin and subcutaneous tissue T Spot TB 01/18/24 M79.641 - Pain in right hand, M79.642 - Pain in left hand, Z11.9 - Encounter for screening for infectious and parasitic diseases, unspecified Protein Electrophoresis, Serum 01/18/24 M79.641 - Pain in right hand, M79.642 - Pain in left hand, M25.561 - Pain in right knee, M25.562 - Pain in left knee, G89.29 - Other chronic pain, Z87.2 - Personal history of diseases of the skin and subcutaneous tissue Mitochondrial Antibody 01/18/24 M79.641 - Pain in right hand, M79.642 - Pain in left hand, M25.561 - Pain in right knee, M25.562 - Pain in left knee, G89.29 - Other chronic pain, Z87.2 - Personal history of diseases of the skin and subcutaneous tissue Hepatitis A,B,C Profile 01/18/24 M25.561 - Pain in right knee, M25.562 - Pain in left knee, G89.29 - Other chronic pain, Z11.9 - Encounter for screening for infectious and parasitic diseases, unspecified Creatine Kinase Total 01/18/24 M79.641 - Pain in right hand, M79.642 - Pain in left hand, M25.561 - Pain in right knee, M25.562 - Pain in left knee, G89.29 - Other chronic pain, Z87.2 - Personal history of diseases of the skin and subcutaneous tissue Coding Level of Care Code New Pt Level 4 (81086) Diagnoses Bilateral chronic knee pain M25.561; M25.562; G89.29 Bilateral hand pain M79.641; M79.642 History of psoriasis Z87.2 Seronegative inflammatory arthritis M13.80 Long-term use of immunosuppressant medication Z79.60
== END 2024-01-18 14:40 | disposition home or self-care (01) ==
PROVIDERS: PCP Family Medicine; Visit Provider Nurse Practitioner Family
DX: M25.561 Pain in right knee (principal); M25.562 Pain in left knee; G89.29 Other chronic pain; M79.641 Pain in right hand; M79.642 Pain in left hand; Z87.2 Personal history of diseases of the skin and subcutaneous tissue; M13.80 Other specified arthritis, unspecified site; Z79.60 Long term (current) use of unspecified immunomodulators and immunosuppressants
CPT/HCPCS: 99204

== ENCOUNTER 2024-03-09 12:24 | Outpatient (REF) | payer OTHER, SELFPAY ==
[2024-03-09 13:21] LABS: Appearance Urine Cloudy; Color Urine Yellow; Glucose Urine UA Negative (Negative); Leukocyte Esterase Urine Moderate (2+) (Negative); Nitrite Urine Negative (Negative); PH 5.5 (5.0-9.0); Specific Gravity - Urine >= 1.030 (1.005-1.025); UMIC TRIGGER UA YES; Urine Blood Small (1+) (Negative); Urine Ketones Negative (Negative); Urine Protein Negative (Neg-Trace)
[2024-03-09 13:42] LABS: Bacteria Urine 4+ (None Seen); Hyaline Casts Urine 0-2 /LPF (0-2); Squamous Epithelial Cell Urine >20 /HPF (0-2); WBC Urine >50 /HPF (0-5)
[2024-03-09 13:45] LABS: Alanine Aminotransferase 20 U/L (0-31); Albumin Level 4.3 g/dL (3.5-5.0); Alkaline Phosphatase 94 U/L (39-117); Anion Gap 12 (12-20); Aspartate Amino Transferase 18 U/L (5-31); Bilirubin Total 0.6 mg/dL (0.0-1.0); Blood Urea Nitrogen 10 mg/dL (9-16); Calcium 8.8 mg/dL (8.4-10.2); Carbon Dioxide 22 mmol/L (22-29); Chloride 110 mmol/L (96-108); Cholesterol 123 mg/dL (<200); Estimated Glomerular Filt Rate > 60; Glucose Fasting 101 mg/dL (60-99); HDL Cholesterol 37 mg/dL (>40); LDL Cholesterol Calculated 73 mg/dL (<100); Sodium 140 mmol/L (135-145); Total Protein 7.7 g/dL (6.5-8.0); Triglycerides 65 mg/dL (<150)
[2024-03-09 14:02] LABS: Creatinine Urine 245.27 mg/dL; Microalbum/Creatinine Ratio Ur 11.8 ug/mg cr (<30)
== END 2024-03-09 12:25 | disposition home or self-care (01) ==
LOC: HO.LAB 12:24
PROVIDERS: PCP Family Medicine; Visit Provider Family Medicine
DX: Z00.00 Encounter for general adult medical examination without abnormal findings (principal); E78.00 Pure hypercholesterolemia, unspecified; I10 Essential (primary) hypertension
CPT/HCPCS: 36415; 80053; 80061; 81001; 82043; 82570

== ENCOUNTER 2024-03-23 14:24 | Outpatient (AMB) | payer OTHER, SELFPAY ==
--- NOTE | 2024-03-23 14:42 | A.OFFPC_ITS ---
Vital Signs 03/23/24 14:45 Height 5 ft 4.88 in Weight 206 lb 6 oz BMI 34.5 BP 130/78 Blood Pressure Location Lt brachial Position Sitting Respiration 12 Pulse 79 Pulse Source Pulse Oximeter Temp 98 F Temp Source Oral Pulse Oximetry (%) 98 Oxygen Delivery Method Room Air Intake Visit Reasons: f/u hypercholesterolemia, hypertension Intake Note: follow up on hypertention and hypercholesterolemia Allergies Sulfa (Sulfonamide Antibiotics) Allergy (Intermediate, Verified 03/23/24 14:43) hives Medication List - Last Reconciled 03/23/24 by Ernesto Castellon MD acetaminophen (Tylenol Extra Strength) 500 mg PO Q6H PRN albuterol sulfate 90 mcg/actuation (ProAir HFA) 2 puffs inhalation Q4-6H PRN atorvastatin 20 mg PO BEDTIME 90 days blood pressure monitor (Blood Pressure Kit) monitor bp daily and when not feeling well budesonide-formoterol 80-4.5 mcg/actuation (Symbicort) 1 inh inhalation BID 30 days dicyclomine 20 mg PO QID 30 days eluxadoline (Viberzi) 100 mg PO BID fluoxetine 30 mg (1.5 x 20 mg) PO DAILY 90 days [id number] 24,000-76,000 -120,000 unit (Creon) 2 caps PO QID 30 days loperamide (Anti-Diarrheal (loperamide)) mg PO losartan 50 mg PO DAILY 90 days medroxyprogesterone 150 mg IM [id number] metoprolol succinate ER 25 mg PO DAILY 90 days Tobacco use date assessed: 06/28/23 Dental Screening Dental Screen Date: 11/01/23 HPI f/u hypercholesterolemia, hypertension HPI Details 48 y/o female presents to f/u hyperchole sterolemia, hypertension. Labs were drawn 03/09/24. Reviewed labs with pt. Elevated fasting glucose of 101. Triglycerides 65. TC 123. LDL improved from 148 to 73. HDL low at 37. She is on artovastatin 20mg. Blood pressure today 130/78, 79p. She is on losartan 50mg, metoprolol 25mg daily. She continues to watch her diet. Has not been doing much exercise. Follows up with a specialist for chronic bilateral knee pain. She has been using heating pads/ice packs and tylenol for pain relief. Has complaints of urinary frequency. [facility] Medical History (Updated 03/23/24 @ 15:05 by Narendra Chen) Long-term use of immunosuppressant medication Seronegative inflammatory arthritis Screening examination for infectious disease History of psoriasis Bilateral hand pain Bilateral chronic knee pain Colon cancer screening Immunization counseling Laboratory exam ordered as part of routine general medical examination Annual physical exam Screening for blood or protein in urine Normal physical exam Left sided abdominal pain Thoracic back pain Elevated blood pressure reading Symptomatic tonsillar crypt Well adult exam Left low back pain Surgical History H/O colonoscopy History of bronchoscopy History of wisdom tooth extraction Family History Father COPD (chronic obstructive pulmonary disease) Smoker Mother Dementia Social History Housing: Apartment Patient Tobacco Use Status: Never used Tobacco e-Cigarette/Vaping Use: Never Used Second Hand Smoke Exposure: Yes service: No Current occupational status: unemployed Current occupational exposures/hazards: No Cognitive needs: No Hearing needs: No Vision needs: No Questionnaire Thrive Questionnaire Date Thrive assessed: 11/25/22 TRACEE-7 AMB Questionnaire TRACEE-7 Date TRACEE - 7 assessed: 11/25/22 Source: Developed by Drs. Jimmie Suresh, Emilie Dudley, Eddie Gusman and colleagues, with an educational oshail from [employer] Review of Systems Const Denies chills, Denies fatigue, Denies fever(s), Denies headache(s) and Denies weakness ENT Denies dizziness and Denies headache(s) Card Denies dyspnea Resp Denies cough, Denies dyspnea, Denies wheezing and Denies other (shortness of breath) Musc Reports back pain, Denies numbness and Denies tingling Neuro Denies dizziness, Denies headache(s), Denies numbness, Denies tingling and Denies weakness Psych Denies anxiety and Denies depression Endo Denies fatigue Aller/Immun Denies wheezing Physical exam (Primary Care) Vital Signs: Last Vital Signs Temp 98 F 03/23/24 14:45 Pulse 79 03/23/24 14:45 Resp 12 03/23/24 14:45 BP 130/78 03/23/24 14:45 Pulse Ox 98 03/23/24 14:45 Oxygen Delivery Method Room Air 03/23/24 14:45 BMI result Body Mass Index 34.5 Tobacco/Smoking Status: Tobacco use Status Tobacco use date assessed 06/28/23 03/23/24 14:47 Patient Tobacco Use Status Never used Tobacco 03/23/24 14:47 e-Cigarette/Vaping Use Never Used 03/23/24 14:47 Thrive Assessment: Date of Thrive Assessment Date Thrive assessed 11/25/22 03/23/24 14:47 Const General: well developed; No acute distress Nutritional Appearance: well nourished Orientation/consciousness: patient oriented x3 HENMT Head: Yes normocephalic and Yes atraumatic Eyes General: appearance normal, both eyes and all related structures Pupils: Equal, round and reactive pupils present EOM: EOMs intact bilaterally Resp Effort & Inspection: normal respiratory effort Neuro General: patient oriented x3 and gait normal Cranial nerves: Yes Equal, round and reactive pupils present Psych Affect: normal affect Assessment and Plan Assessment & Plan (1) HTN (hypertension): Code(s): I10 - Essential (primary) hypertension Plan: Blood?pressure?is?controlled.??Goal?is?less?than?140/90 Continue?current?medication (2) Hypercholesterolemia: Code(s): E78.00 - Pure hypercholesterolemia, unspecified Plan: Lipids?are?much?improved?but?HDL?is?a?bit?low Will?ease?up?on?atorvastatin; she?will?take?10?mg?daily Follow-up?in?3?months (3) Bilateral chronic knee pain: Code(s): M25.561 - Pain in right knee; M25.562 - Pain in left knee; G89.29 - Other chronic pain Plan: Now?followed?by?rheumatology?and?workup?is?underway Follow-up?with?rheumatology?as?recommended (4) Urinary frequency: Code(s): R35.0 - Frequency of micturition Plan: Patient?notes?urinary?frequency Most?recent?urinalysis?was?suspicious?for?urinary?tract?infection?and?she?has?fi nished?nitrofurantoin?since?then Still?notes?some?frequency Will?recheck?urinalysis?and?culture (5) Back pain: Code(s): M54.9 - Dorsalgia, unspecified Plan: Right-sided?back?pain?without?CVA?tenderness?but?does?have?pain?with?palpation This?appears?to?be?a?recurrent?muscle?strain Start?physical?therapy Orders: Orders PT Evaluation and Treatment Today M54.9 - Dorsalgia, unspecified Comprehensive [place]. Panel Fast Today E78.00 - Pure hypercholesterolemia, unspecified, Z00.00 - Encounter for general adult medical examination without abnormal findings UA and rflx microscopic Today R35.0 - Frequency of micturition, Z00.00 - Encounter for general adult medical examination without abnormal findings Urine Culture Today R35.0 - Frequency of micturition Lipid Panel Today E78.00 - Pure hypercholesterolemia, unspecified, Z00.00 - Encounter for general adult medical examination without abnormal findings Medications: Changed From atorvastatin 20 mg PO BEDTIME 90 days 90 tabs 2RF To atorvastatin 10 mg (1/2 x 20 mg) PO BEDTIME 90 days 45 tabs 2RF Coding Level of Care Code Est Pt Level 4 (16200) Diagnoses HTN (hypertension) I10 Hypercholesterolemia E78.00 Bilateral chronic knee pain M25.561; M25.562; G89.29 Urinary frequency R35.0 Back pain M54.9
[2024-03-23 14:45] VITALS: BP 130/78; PULSE 79; RESP 12; TEMP 36.6; O2SAT 98; BMI 34.5
== END 2024-03-23 15:27 | disposition home or self-care (01) ==
PROVIDERS: PCP Family Medicine; Visit Provider Family Medicine
DX: I10 Essential (primary) hypertension (principal); E78.00 Pure hypercholesterolemia, unspecified; M25.561 Pain in right knee; M25.562 Pain in left knee; G89.29 Other chronic pain; R35.0 Frequency of micturition; M54.9 Dorsalgia, unspecified
CPT/HCPCS: 99214

== ENCOUNTER 2024-03-23 15:11 | Outpatient (REF) | payer OTHER, SELFPAY ==
[2024-03-23 19:50] LABS: Appearance Urine Clear; Color Urine Yellow; Glucose Urine UA Negative (Negative); Leukocyte Esterase Urine Trace (Negative); Nitrite Urine Negative (Negative); PH 5.5 (5.0-9.0); Specific Gravity - Urine 1.015 (1.005-1.025); UMIC TRIGGER UA YES; Urine Blood Negative (Negative); Urine Ketones Negative (Negative); Urine Protein Negative (Neg-Trace)
[2024-03-23 20:31] LABS: Bacteria Urine None Seen (None Seen); Hyaline Casts Urine 0-2 /LPF (0-2); RBC Urine 0-2 /HPF (0-2); Squamous Epithelial Cell Urine 0-2 /HPF (0-2); WBC Urine 0-5 /HPF (0-5)
== END 2024-03-23 15:12 | disposition home or self-care (01) ==
LOC: HO.LAB 15:11
PROVIDERS: Visit Provider Family Medicine
DX: Z00.00 Encounter for general adult medical examination without abnormal findings (principal); R35.0 Frequency of micturition
CPT/HCPCS: 81001; 81003; 87086

== ENCOUNTER 2024-04-06 12:02 | Outpatient (AMB) | payer OTHER, SELFPAY ==
[2024-04-06 12:12] VITALS: BP 137/74; PULSE 89; BMI 34.3
--- NOTE | 2024-04-06 12:12 | A.OFFVIS_ITS ---
Vital Signs 04/06/24 12:12 Height 5 ft 4.88 in Weight 205 lb 7.533 oz BMI 34.3 BP 137/74 Blood Pressure Location Lt brachial Position Sitting Pulse 89 Intake Visit Reasons: pt req follow up Intake Note: Patient in office today in follow up of IBS. CC: Patient reports that she is having a lot of nausea and frequent BMs d/t recently been on a lot of abx. Pmo Consultant Required: No Allergies Sulfa (Sulfonamide Antibiotics) Allergy (Intermediate, Verified 04/06/24 12:18) hives HPI HPI pt req follow up: Details: Assessment & Plan (1) Irritable bowel syndrome with diarrhea: Code(s): K58.0 - Irritable bowel syndrome with diarrhea (2) Exocrine pancreatic insufficiency: Comment: pancreatic elastase only 36!! Code(s): K86.81 - Exocrine pancreatic insufficiency Plan She is taking the bentyl tid. She also continues on her creon and Viberzi. She had been taking the Viberzi qd, but she has had a tough week and she may need to titrate up to bid. She has had a lot of stresses, her aunt is going through breast cancer. Her eating is all over the place as well and she was taking the creon qid and I present that 2 caps bid may be better. At times she is overwhelmed with the pill burden. She has been having some dizziness and while it could be r/t the bentyl, it is intermittent and inconsistent. The ddx is wide and could include anxiety, low BS, dehydration etc. Since the DDX is so wide I defer this work up to her PCP who she will be seeing soon - but she can experiment with the bentyl to see if this is the source. Return office visit in 3 months to see how she is doing TODAY'S VISIT She had a rough couple of months, she had pneumonia in early October followed by a UTI and now she has had several UTI's. She is currently being worked up for psoriatic OA and this may be draining her immune system. 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 The abx caused diarrhea and nausea and she increased her Viberzi from qd to bid - which is fine. Will rx pantoprazole and zofran. She stopped the bentyl, but advised her she CAN continue this with the Viberzi. ROV 3 mos. [facility] Medical History (Updated 05/04/24 @ 18:27 by KAREN Redding) Screening examination for infectious disease History of psoriasis Cough Breast cancer screening by mammogram Colon cancer screening Screening for cervical cancer Adult general medical exam Long-term use of immunosuppressant medication Seronegative inflammatory arthritis Bilateral hand pain Bilateral chronic knee pain Immunization counseling Laboratory exam ordered as part of routine general medical examination Annual physical exam Screening for blood or protein in urine Normal physical exam Left sided abdominal pain Thoracic back pain Elevated blood pressure reading Symptomatic tonsillar crypt Well adult exam Left low back pain Surgical History H/O colonoscopy History of bronchoscopy History of wisdom tooth extraction Family History Father COPD (chronic obstructive pulmonary disease) Smoker Mother Dementia Social History Housing: Apartment Patient Tobacco Use Status: Never used Tobacco e-Cigarette/Vaping Use: Never Used Second Hand Smoke Exposure: Yes service: No Current occupational status: unemployed Current occupational exposures/hazards: No Cognitive needs: No Hearing needs: No Vision needs: No Review of Systems Const Reports fatigue, Denies fever(s), Denies night sweats, Denies poor appetite and Denies weight loss ENT Reports Normal hearing present, Denies dental pain, Denies dysphagia, Denies hearing loss, Denies mouth pain, Denies odynophagia, Denies throat swelling, Denies tongue swelling and Reports other (Dentition adequate) Card Reports no additional complaints Resp Reports no additional complaints GI Details: Denies abdominal pain, Denies melena, Reports bloating, Denies hematochezia, Denies constipation, Denies GI cramping, Denies dysphagia, Denies excessive flatus, Denies early satiety, Reports heartburn, Reports diarrhea, Denies nausea, Denies odynophagia, Denies vomiting and Denies hematemesis Skin/Breast Denies pruritus, Denies lesions, Denies rash and Denies jaundice Neuro Reports Normal hearing present and Denies Abnormal speech present Endo Reports fatigue Aller/Immun Denies throat swelling and Denies tongue swelling Physical Exam Vital Signs: Last Vital Signs Pulse 89 04/06/24 12:12 BP 137/74 04/06/24 12:12 BMI result Body Mass Index 34.3 Const General: cooperative, no acute distress, well developed and well groomed Nutritional Appearance: well nourished and obese Orientation/consciousness: oriented to person, oriented to place and oriented to time Limitations: No language barrier HEENT Head: Yes normocephalic and Yes atraumatic Eyes General: appearance normal, both eyes and all related structures Pupils: Equal, round and reactive pupils present Neck Neck: Yes normal visual inspection and Yes no lymphadenopathy Thyroid: Thyroid normal Resp Effort & Inspection: normal respiratory effort and able to speak in complete sentences Auscultation: clear to auscultation bilaterally Cardio Rate: regular rate Rhythm: regular rhythm Heart sounds: Normal, physiologic split S2 sound present Peripheral pulses: radial pulses present and posterior tibial pulses present GI Inspection: No distended, No Abdominal panniculus present and Yes obesity Palpation (GI): Soft to palpation, nontender, no guarding, not rigid and No hepatosplenomegaly present Percussion: Yes normal to percussion Auscultation: normal bowel sounds Rectal Exam - Female: deferred Skin General skin exam: no rashes or lesions noted, turgor normal, skin not dry, no jaundice, No spider nevi and no striae Rashes: no rashes Nails: normal Neuro General: oriented to person, oriented to place and oriented to time Cranial nerves: Yes Equal, round and reactive pupils present and Yes Normal hearing present Speech: No Abnormal speech present Extrem General: Yes normal to inspection, No clubbing, No cyanosis and No edema Psych Appearance: grossly normal and well kempt Mental Status: mental status grossly normal Speech and movement: Normal speech and movement present Affect: normal affect Attitude: cooperative Thought process: Normal thought process present and not confabulating Thought content: Normal thought content present Insight: Limited insight present (Psych) Judgement: Limited judgement present (Psych) Assessment & Plan Assessment & Plan (1) Nausea and vomiting: Code(s): R11.2 - Nausea with vomiting, unspecified Category: Medical (2) Irritable bowel syndrome with diarrhea: Code(s): K58.0 - Irritable bowel syndrome with diarrhea Category: Medical (3) Exocrine pancreatic insufficiency: Comment: pancreatic elastase only 36!! Code(s): K86.81 - Exocrine pancreatic insufficiency Category: Medical Plan She had a rough couple of months, she had pneumonia in early October followed by a UTI and now she has had several UTI's. She is currently being worked up for psoriatic OA and this may be draining her immune system. 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 The abx caused diarrhea and nausea and she increased her Viberzi from qd to bid - which is fine. Will rx pantoprazole and zofran. She stopped the bentyl, but advised her she CAN continue this with the Viberzi. ROV 3 mos. Medications: New pantoprazole (Protonix) 40 mg PO DAILY 30 tabs 3RF 30 days ondansetron 4 mg PO BID-TID PRN 14 tabs 0RF nausea and vomiting R11.2 - Nausea with vomiting, unspecified Coding Level of Care Code Est Pt Level 3 (70450) Diagnoses Nausea and vomiting R11.2 Irritable bowel syndrome with diarrhea K58.0 Exocrine pancreatic insufficiency K86.81
== END 2024-04-06 13:21 | disposition home or self-care (01) ==
PROVIDERS: PCP Family Medicine; Visit Provider Nurse Practitioner
DX: R11.2 Nausea with vomiting, unspecified (principal); K58.0 Irritable bowel syndrome with diarrhea; K86.81 Exocrine pancreatic insufficiency
CPT/HCPCS: 99213

== ENCOUNTER → 2024-04-06 12:02 | Outpatient (BNVA) | payer OTHER, SELFPAY | PROVIDERS: PCP Family Medicine; Visit Provider Nurse Practitioner | DX: K58.0 Irritable bowel syndrome with diarrhea (principal); K86.81 Exocrine pancreatic insufficiency; R11.2 Nausea with vomiting, unspecified | CPT/HCPCS: 99212 ==

== ENCOUNTER 2024-06-26 12:34 | Outpatient (REF) | payer OTHER, SELFPAY ==
[2024-06-26 13:25] LABS: Alanine Aminotransferase 29 U/L (0-31); Albumin Level 4.3 g/dL (3.5-5.0); Alkaline Phosphatase 89 U/L (39-117); Anion Gap 12 (12-20); Aspartate Amino Transferase 24 U/L (5-31); Bilirubin Total 0.6 mg/dL (0.0-1.0); Blood Urea Nitrogen 11 mg/dL (9-16); Calcium 9.6 mg/dL (8.4-10.2); Carbon Dioxide 22 mmol/L (22-29); Chloride 108 mmol/L (96-108); Cholesterol 142 mg/dL (<200); Estimated Glomerular Filt Rate > 60; Glucose Fasting 104 mg/dL (60-99); HDL Cholesterol 37 mg/dL (>40); LDL Cholesterol Calculated 84 mg/dL (<100); Potassium 3.8 mmol/L (3.3-5.1); Sodium 138 mmol/L (135-145); Total Protein 7.8 g/dL (6.5-8.0); Triglycerides 107 mg/dL (<150)
[2024-06-26 17:37] LABS: Appearance Urine Cloudy; Color Urine Yellow; Glucose Urine UA Negative (Negative); Leukocyte Esterase Urine Moderate (2+) (Negative); Nitrite Urine Negative (Negative); PH 5.5 (5.0-9.0); UMIC TRIGGER UA YES; Urine Blood Negative (Negative); Urine Ketones Negative (Negative); Urine Protein Trace mg/dL (Neg-Trace)
[2024-06-26 18:11] LABS: Bacteria Urine 1+ (None Seen); Hyaline Casts Urine 0-2 /LPF (0-2); RBC Urine 0-2 /HPF (0-2)
== END 2024-06-26 12:35 | disposition home or self-care (01) ==
LOC: HO.LAB 12:34
PROVIDERS: PCP Family Medicine; Visit Provider Family Medicine
DX: Z00.00 Encounter for general adult medical examination without abnormal findings (principal); E78.00 Pure hypercholesterolemia, unspecified
CPT/HCPCS: 36415; 80053; 80061; 81001; 81003

== ENCOUNTER 2024-07-30 14:46 | Emergency (ER) | payer OTHER, SELFPAY ==
--- NOTE | ~2024-07-30 | XR_ITS ---
EXAMINATION: XR CHEST CLINICAL INFORMATION: CP COMPARISON: 11/04/2023 TECHNIQUE: 2 views of the chest were obtained. FINDINGS: No significant abnormality is noted involving the heart, lungs, mediastinum, bony thorax or soft tissues. XR/XR chest 2V IMPRESSION: Unremarkable examination. Electronically signed by: Tomas Sherman MD 07/30/2024 03:53 PM [facility] [place]
--- NOTE | 2024-07-30 14:47 | ECG_ITS ---
Test Reason : cp Blood Pressure : / mmHG Vent. Rate : 127 BPM Atrial Rate : 127 BPM P-R Int : 130 ms QRS Dur : 064 ms QT Int : 320 ms P-R-T Axes : 035 029 031 degrees QTc Int : 465 ms Sinus tachycardia Low voltage QRS Nonspecific ST abnormality Abnormal ECG When compared with ECG of 15-APR-2020 09:25, No significant change was found Referred By: Angelina Abdullahi Electronically Signed By:GENA HALL
[2024-07-30 15:02] VITALS: BP 151/93; PULSE 115; RESP 18; TEMP 36.1; O2SAT 96
--- NOTE | 2024-07-30 15:02 | ED_ITS ---
HPI - Chest Pain General Chief Complaint: Chest Pain Stated Complaint: chest pain l side numbness Time Seen by Provider: 07/30/24 20:28 Source: patient Mode of arrival: ambulatory Limitations: no limitations History of Present Illness ED Provider: HPI narrative: Patient's rotator cuff tendinitis complaining of pain in the left side of the chest and the left shoulder for several days off and on in the past patient's labs were negative chest x-ray to my evaluation Related Data Home Medications ?Medication ?Instructions ?Recorded ?Confirmed medroxyprogesterone 150 mg/mL 150 mg IM [id number] 04/14/22 03/23/24 intramuscular suspension loperamide 2 mg tablet mg PO 08/26/23 03/23/24 (Anti-Diarrheal (loperamide)) acetaminophen 500 mg tablet 500 mg PO Q6H PRN 10/21/23 03/23/24 (Tylenol Extra Strength) Previous Rx's ?Medication ?Instructions ?Recorded blood pressure monitor (Blood #1 ea 08/05/21 Pressure Kit) albuterol sulfate 90 mcg/actuation 2 puff inhalation Q4-6H PRN 11/25/22 aerosol inhaler (ProAir HFA) shortness of breath or wheezing #8.5 grams dicyclomine 20 mg tablet 20 mg PO QID 30 days #120 tabs 08/26/23 budesonide-formoterol HFA 80 1 inh inhalation BID 30 days #10.2 11/01/23 mcg-4.5 mcg/actuation aerosol grams inhaler (Symbicort) losartan 50 mg tablet 50 mg PO DAILY 90 days #90 tabs 11/01/23 metoprolol succinate 25 mg 25 mg PO DAILY 90 days #90 tabs 01/05/24 tablet,extended release 24 hr eluxadoline 100 mg tablet (Viberzi) 100 mg PO BID #60 tabs 03/08/24 atorvastatin 20 mg tablet 10 mg (1/2 x 20 mg) PO BEDTIME 90 03/23/24 days #45 tabs ondansetron 4 mg disintegrating 4 mg PO BID-TID PRN nausea and 04/06/24 tablet vomiting #14 tabs [id number]-[id number]-cjjavcz 2 cap PO QID 30 days #240 caps 05/01/24 24,000-76,000-120,000 unit capsule,delayed rel (Creon) pantoprazole 40 mg tablet,delayed 40 mg PO DAILY #90 tabs 07/04/24 release clonazepam 1 mg tablet (Klonopin) 1 mg PO BEDTIME PRN Anxiety/sleep 07/30/24 #14 tabs ibuprofen 600 mg tablet 600 mg PO Q6H PRN fever or pain 07/30/24 #30 tabs fluoxetine 20 mg tablet 30 mg (1.5 x 20 mg) PO DAILY 90 08/02/24 days #135 tabs Allergies Allergy/AdvReac Type Severity Reaction Status Date / Time Sulfa (Sulfonamide Allergy Intermediate hives Verified 07/30/24 15:05 Antibiotics) Review of Systems 2 Review of Systems: Yes all other systems are reviewed and are negative [facility] Past Medical History Medical History Screening examination for infectious disease History of psoriasis Cough Breast cancer screening by mammogram Colon cancer screening Screening for cervical cancer Adult general medical exam Long-term use of immunosuppressant medication Seronegative inflammatory arthritis Bilateral hand pain Bilateral chronic knee pain Immunization counseling Laboratory exam ordered as part of routine general medical examination Annual physical exam Screening for blood or protein in urine Normal physical exam Left sided abdominal pain Thoracic back pain Elevated blood pressure reading Symptomatic tonsillar crypt Well adult exam Left low back pain Surgical History H/O colonoscopy History of bronchoscopy History of wisdom tooth extraction Family History Family History Father COPD (chronic obstructive pulmonary disease) Smoker Mother Dementia Social History Social History Housing: Apartment Patient Tobacco Use Status: Never used Tobacco e-Cigarette/Vaping Use: Never Used Second Hand Smoke Exposure: Yes service: No Current occupational status: unemployed Current occupational exposures/hazards: No Cognitive needs: No Hearing needs: No Vision needs: No Physical Exam 2 Vital Signs: Vital Signs: Last Vital Signs Temp 98.0 F 07/30/24 21:22 Pulse 84 07/30/24 21:22 Resp 12 07/30/24 21:22 BP 142/77 H 07/30/24 21:22 Pulse Ox 96 07/30/24 21:22 O2 Del Method Room Air 07/30/24 19:51 BMI result Body Mass Index 30.0 Appearance: Alert. Oriented X3. No acute distress. Eyes: PERRLA, No Nystagmus ENT: Pharynx normal. Oral Mucosa moist Neck: Normal inspection. Neck supple. CVS: Normal heart rate and rhythm. Pulses normal. Respiratory: No respiratory distress. Equal air entry bilateral, no wheezing/rales/rhonchi Abdomen: Soft and nontender. Bowel sounds are present, no mass palpable, no CVA tenderness Skin: Skin warm and dry. Normal skin color. Normal skin turgor. Extremities: No lower extremity edema. No calf tenderness left shoulder diffuse tenderness good range of movement Neuro: Oriented X 3. No motor deficit. No sensory deficit.No cerebellar signs , cranial nerves II-XII intact Course Course Course Narrative: This is an RME: Additional HPI, ROS, PE not included below will be deferred to primary provider. RME assessment and note performed by: Angelina Abdullahi PA-C This is a [id number], with a hx of HLD, HTN, who presents to the ER with complaints of left arm tingling, and left sided chest pain since this morning. Chest pain and left arm pain fluctuates in severity. Reports numb/tingling into the left arm. Plan: labs, ekg, viral swabs, cxr, further er eval needed Medications Administered Discontinued Medications Generic Name Dose Route Start Last Admin Trade Name Freq PRN Reason Stop Dose Admin Clonazepam 1 mg 07/30/24 20:58 07/30/24 21:12 Clonazepam 1 Mg Tablet PO 07/30/24 20:59 1 mg ONCE ONE Administration Medical Decision Making Medical Decision Making [facility] Narrative: With atypical pain with left rotator cuff tendinitis cardiac enzymes negative EKG without ischemic advised to follow Orthopedics intake ibuprofen for pain initially patient is tachycardic with heart rate 115-127 during stay in the ER patient's heart rate improved to 84. Patient was very anxious on arrival likely the cause for tachycardic Differential Diagnosis Differential Diagnoses: The differential diagnosis associated with the presentation includes Lab Data [facility] Lab Attestation statement: I reviewed the patient's lab results. 07/30/24 15:21 07/30/24 15:22 Labs: Lab Results 07/30/24 07/30/24 Range/Units 15:21 15:22 WBC 7.7 (4.8-10.8) X10*3/uL RBC 4.94 (4.20-5.50) X10*6/uL Hgb 14.8 (12.0-16.0) g/dl Hct 44.0 (37.0-47.0) % MCV 89.1 (80.0-98.0) fL MCH 30.0 (27.0-33.0) pg MCHC 33.6 (31.0-35.0) g/dl RDW 13.6 (11.0-16.0) % Plt Count 298 (160-400) X10*3/uL MPV 9.3 L (9.4-12.3) fL Immature Gran % (Auto) 0.3 (0.0-0.4) % Neut % (Auto) 73.9 H (45-73) % Lymph % (Auto) 16.8 L (20-40) % [place] % (Auto) 7.6 (2-11) % Eos % (Auto) 1.0 (0-4) % Baso % (Auto) 0.4 (0-2) % Lymph # (Auto) 1.3 (1.2-4.9) X10*3/uL [place] # (Auto) 0.6 (0.1-1.2) X10*3/uL Eos # (Auto) 0.1 (0.0-0.4) X10*3/uL Baso # (Auto) 0.0 (0.0-0.2) X10*3/uL Abs Immat Gran (auto) 0.02 (0.00-0.03) X10*3/uL Absolute Neuts (auto) 5.7 (2.0-8.3) x10*3/uL Absolute Nucleated RBC 0.000 (0.0-0.012) X10*3/uL Nucleated RBC % (auto) 0.0 (0.0-0.2) /100WBC PT 11.5 (10.9-12.4) SEC INR 1.0 (0.9-1.1) Sodium 140 (135-145) mmol/L Potassium 3.7 (3.3-5.1) mmol/L Chloride 108 (96-108) mmol/L Carbon Dioxide 23 (22-29) mmol/L Anion Gap 13 (12-20) BUN 12 (9-16) mg/dL Creatinine 0.79 (0.5-1.4) mg/dL Estim Creat Clear Calc 88.7 Estimated GFR > 60 Random Glucose 98 (60-115) mg/dL Calcium 9.7 (8.4-10.2) mg/dL Magnesium 2.2 (1.6-2.6) mg/dL Total Bilirubin 0.5 (0.0-1.0) mg/dL Direct Bilirubin 0.2 (0.0-0.5) mg/dL AST 29 (5-31) U/L ALT 22 (0-31) U/L Alkaline Phosphatase 92 (39-117) U/L Troponin I High Sens < 2.7 (<3.5-17.0) ng/L Total Protein 7.8 (6.5-8.0) g/dL Albumin 4.3 (3.5-5.0) g/dL TSH 1.93 (0.32-4.0) uIU/mL Influenza Type A (PCR) NEGATIVE (Negative) Influenza Type B (PCR) NEGATIVE (Negative) RSV RNA Qual (PCR) NEGATIVE (Negative) SARS-CoV-2 RNA (RT-PCR) NEGATIVE (Negative) Independent Interpretation I performed an independent interpretation of an: EKG Interpretation: Sinus tachycardia heart rate 127 beats per minute normal interval normal axis no acute STT wave changes Discharge Plan Discharge Clinical Impression: Atypical chest pain, Tendinitis of left rotator cuff, Anxiety Patient Disposition: Home, Self-Care Instructions: Chest Pain (ED), Rotator Cuff Tendinitis (ED), Anxiety (ED) Additional Instructions: Likely your pain in the left arm is from the tendinitis of the rotator cuff muscles is not from the heart Take ibuprofen for pain Take medication for your anxiety and sleep as prescribed and follow up with the PCP Prescriptions: New ibuprofen 600 mg tablet 600 mg PO Q6H PRN (Reason: fever or pain) Qty: 30 0RF clonazepam [Klonopin] 1 mg tablet 1 mg PO BEDTIME PRN (Reason: Anxiety/sleep) Qty: 14 0RF Rx Instructions: administer 30 minutes before bedtime No Action Viberzi 100 mg tablet 100 mg PO BID Qty: 60 5RF Rx Instructions: must administer with a meal/food Creon 24,000-76,000 -120,000 unit capsule,delayed release(DR/EC) 2 cap PO QID 30 Days Qty: 240 3RF Rx Instructions: administer with meals and/or snacks pantoprazole 40 mg tablet,delayed release (DR/EC) 40 mg PO DAILY Qty: 90 1RF fluoxetine 20 mg tablet 30 mg PO DAILY 90 Days Qty: 135 2RF medroxyprogesterone 150 mg/mL suspension 150 mg IM [id number] albuterol sulfate [ProAir HFA] 90 mcg/actuation HFA aerosol inhaler 2 puff inhalation Q4-6H PRN (Reason: shortness of breath or wheezing) Qty: 8.5 4RF atorvastatin 20 mg tablet 10 mg PO BEDTIME 90 Days Qty: 45 2RF (DME) blood pressure monitor [Blood Pressure Kit] Kit See Rx Instructions .Route Qty: 1 0RF Rx Instructions: monitor bp daily and when not feeling well losartan 50 mg tablet 50 mg PO DAILY 90 Days Qty: 90 3RF Rx Instructions: corrected rx budesonide-formoterol [Symbicort] 80-4.5 mcg/actuation HFA aerosol inhaler 1 inh inhalation BID 30 Days Qty: 10.2 2RF metoprolol succinate 25 mg tablet extended release 24 hr 25 mg PO DAILY 90 Days Qty: 90 2RF loperamide [Anti-Diarrheal (loperamide)] 2 mg tablet PO dicyclomine 20 mg tablet 20 mg PO QID 30 Days Qty: 120 6RF acetaminophen [Tylenol Extra Strength] 500 mg tablet 500 mg PO Q6H PRN ondansetron 4 mg tablet,disintegrating 4 mg PO BID-TID PRN (Reason: nausea and vomiting) Qty: 14 0RF Interventions: ED Discharge Assessment Last Done: 07/30/24 21:22 Discharge Date/Time: 07/30/24 21:23 Print Language: Yi
[2024-07-30 15:29] LABS: MANUAL DIFF FLAG NO
[2024-07-30 15:32] LABS: Basophils Percent Auto 0.4 % (0-2); Eosinophils Absolute Auto 0.1 X10*3/uL (0.0-0.4); Hemoglobin 14.8 g/dl (12.0-16.0); Imm Gran Abs Auto 0.02 X10*3/uL (0.00-0.03); Imm Gran Pct Auto 0.3 % (0.0-0.4); Lymphocytes Absolute Auto 1.3 X10*3/uL (1.2-4.9); Lymphocytes Percent Auto 16.8 % (20-40); Mean Corpuscular HGB Conc 33.6 g/dl (31.0-35.0); Mean Corpuscular Volume 89.1 fL (80.0-98.0); Mean Platelet Volume 9.3 fL (9.4-12.3); Monocytes Absolute Auto 0.6 X10*3/uL (0.1-1.2); Monocytes Percent Auto 7.6 % (2-11); Neutrophils Absolute Auto 5.7 x10*3/uL (2.0-8.3); Neutrophils Percent Auto 73.9 % (45-73); Platelet Count 298 X10*3/uL (160-400); Red Blood Count 4.94 X10*6/uL (4.20-5.50); Red Cell Distribution Width 13.6 % (11.0-16.0); White Blood Count 7.7 X10*3/uL (4.8-10.8)
[2024-07-30 15:39] LABS: Prothrombin Time 11.5 SEC (10.9-12.4)
[2024-07-30 15:50] LABS: Albumin Level 4.3 g/dL (3.5-5.0); Anion Gap 13 (12-20); Aspartate Amino Transferase 29 U/L (5-31); Bilirubin Direct 0.2 mg/dL (0.0-0.5); Bilirubin Total 0.5 mg/dL (0.0-1.0); Blood Urea Nitrogen 12 mg/dL (9-16); Calcium 9.7 mg/dL (8.4-10.2); Carbon Dioxide 23 mmol/L (22-29); Chloride 108 mmol/L (96-108); Creatinine Clr Calc Pharmacy 88.7; Estimated Glomerular Filt Rate > 60; Glucose Random 98 mg/dL (60-115); Magnesium 2.2 mg/dL (1.6-2.6); Potassium 3.7 mmol/L (3.3-5.1); Sodium 140 mmol/L (135-145); Total Protein 7.8 g/dL (6.5-8.0)
[2024-07-30 15:54] LABS: Troponin-I High Sensitivity < 2.7 ng/L (<3.5-17.0)
[2024-07-30 16:16] LABS: Influenza A PCR NEGATIVE (Negative); Influenza B PCR NEGATIVE (Negative); Resp Syncy Virus RNA Qual PCR NEGATIVE (Negative); SARS COV2 PCR INHOUSE NEGATIVE (Negative)
[2024-07-30 16:16] LABS: Alanine Aminotransferase 22 U/L (0-31); Alkaline Phosphatase 92 U/L (39-117); TSH reflex Free T4 1.93 uIU/mL (0.32-4.0)
[2024-07-30 19:51] VITALS: BP 146/88; PULSE 114; RESP 14; TEMP 36.6; O2SAT 97
--- NOTE | 2024-07-30 20:59 | ED.CHESTPAIN ---
HPI - Chest Pain General Chief Complaint: Chest Pain Stated Complaint: chest pain l side numbness Time Seen by Provider: 07/30/24 20:28 Source: patient Mode of arrival: ambulatory Limitations: no limitations History of Present Illness ED Provider: HPI narrative: Patient's history of arthritis anxiety and stress and hypertension no known coronary artery disease recently been more stress as her partner complaining of pain in the left all day today going to the chest feel tingling and pain gets worse movement no recent fall or injury Related Data Home Medications ?Medication ?Instructions ?Recorded ?Confirmed medroxyprogesterone 150 mg/mL 150 mg IM [id number] 04/14/22 03/23/24 intramuscular suspension loperamide 2 mg tablet mg PO 08/26/23 03/23/24 (Anti-Diarrheal (loperamide)) acetaminophen 500 mg tablet 500 mg PO Q6H PRN 10/21/23 03/23/24 (Tylenol Extra Strength) Previous Rx's ?Medication ?Instructions ?Recorded blood pressure monitor (Blood #1 ea 08/05/21 Pressure Kit) albuterol sulfate 90 mcg/actuation 2 puff inhalation Q4-6H PRN 11/25/22 aerosol inhaler (ProAir HFA) shortness of breath or wheezing #8.5 grams dicyclomine 20 mg tablet 20 mg PO QID 30 days #120 tabs 08/26/23 budesonide-formoterol HFA 80 1 inh inhalation BID 30 days #10.2 11/01/23 mcg-4.5 mcg/actuation aerosol grams inhaler (Symbicort) fluoxetine 20 mg tablet 30 mg (1.5 x 20 mg) PO DAILY 90 11/01/23 days #135 tabs losartan 50 mg tablet 50 mg PO DAILY 90 days #90 tabs 11/01/23 metoprolol succinate 25 mg 25 mg PO DAILY 90 days #90 tabs 01/05/24 tablet,extended release 24 hr eluxadoline 100 mg tablet (Viberzi) 100 mg PO BID #60 tabs 03/08/24 atorvastatin 20 mg tablet 10 mg (1/2 x 20 mg) PO BEDTIME 90 03/23/24 days #45 tabs ondansetron 4 mg disintegrating 4 mg PO BID-TID PRN nausea and 04/06/24 tablet vomiting #14 tabs [id number] 2 cap PO QID 30 days #240 caps 05/01/24 24,000-76,000-120,000 unit capsule,delayed rel (Creon) pantoprazole 40 mg tablet,delayed 40 mg PO DAILY #90 tabs 07/04/24 release clonazepam 1 mg tablet (Klonopin) 1 mg PO BEDTIME PRN Anxiety/sleep 07/30/24 #14 tabs ibuprofen 600 mg tablet 600 mg PO Q6H PRN fever or pain 07/30/24 #30 tabs Allergies Allergy/AdvReac Type Severity Reaction Status Date / Time Sulfa (Sulfonamide Allergy Intermediate hives Verified 07/30/24 15:05 Antibiotics) Review of Systems Review of Systems: Yes all other systems are reviewed and are negative [facility] Past Medical History Medical History (Updated 07/31/24 @ 00:01 by Jona Merida) Screening examination for infectious disease History of psoriasis Cough Breast cancer screening by mammogram Colon cancer screening Screening for cervical cancer Adult general medical exam Long-term use of immunosuppressant medication Seronegative inflammatory arthritis Bilateral hand pain Bilateral chronic knee pain Immunization counseling Laboratory exam ordered as part of routine general medical examination Annual physical exam Screening for blood or protein in urine Normal physical exam Left sided abdominal pain Thoracic back pain Elevated blood pressure reading Symptomatic tonsillar crypt Well adult exam Left low back pain Surgical History H/O colonoscopy History of bronchoscopy History of wisdom tooth extraction Family History Family History Father COPD (chronic obstructive pulmonary disease) Smoker Mother Dementia Social History Social History Housing: Apartment Patient Tobacco Use Status: Never used Tobacco Smoked in Last 30 Days: No e-Cigarette/Vaping Use: Never Used Second Hand Smoke Exposure: Yes Use of substances other than those prescribed or required for medical reasons: No Advance Directives: No Advance Directives Information Provided: No Do you have a plan to hurt others: No Plan Patient : No service: No Current occupational status: unemployed Current occupational exposures/hazards: No Cognitive needs: No Hearing needs: No Vision needs: No Physical Exam Vital Signs: Vital Signs: Last Vital Signs Temp 98.0 F 07/30/24 21:22 Pulse 84 12/16/24 21:22 Resp 12 07/30/24 21:22 BP 142/77 H 07/30/24 21:22 Pulse Ox 96 07/30/24 21:22 O2 Del Method Room Air 07/30/24 19:51 BMI result Body Mass Index 30.0 Appearance: Alert. Oriented X3. No acute distress. Eyes: No pallor or icterus ENT: Pharynx normal. Oral Mucosa moist Neck: Normal inspection. Neck supple. CVS: Normal heart rate and rhythm. Pulses normal. Respiratory: No respiratory distress. Equal air entry bilateral, no wheezing/rales/rhonchi Abdomen: Soft and nontender. Bowel sounds are present, no mass palpable, Skin: Skin warm and dry. Normal skin color. Normal skin turgor. Extremities: No lower extremity edema. No calf tenderness diffuse tenderness left shoulder tenderness at the rotator cuff Neuro: Oriented X 3. No motor deficit. No sensory deficit.No cerebellar signs , cranial nerves II-XII intact Medications Administered Discontinued Medications Generic Name Dose Route Start Last Admin Trade Name Caliq PRN Reason Stop Dose Admin Clonazepam 1 mg 07/30/24 20:58 07/30/24 21:12 Clonazepam 1 Mg Tablet PO 07/30/24 20:59 1 mg ONCE ONE Administration Medical Decision Making Medical Decision Making [facility] Narrative: Patient with left rotator cuff tendinitis cardiac enzymes negative EKG without any ischemic changes will discharge patient home also patient under increased stress will give her Klonopin ibuprofen for pain Differential Diagnosis Differential Diagnoses: The differential diagnosis associated with the presentation includes Lab Data [facility] Lab Attestation statement: I reviewed the patient's lab results. 07/30/24 15:21 07/30/24 15:22 Labs: Lab Results 07/30/24 07/30/24 Range/Units 15:21 15:22 WBC 7.7 (4.8-10.8) X10*3/uL RBC 4.94 (4.20-5.50) X10*6/uL Hgb 14.8 (12.0-16.0) g/dl Hct 44.0 (37.0-47.0) % MCV 89.1 (80.0-98.0) fL MCH 30.0 (27.0-33.0) pg MCHC 33.6 (31.0-35.0) g/dl RDW 13.6 (11.0-16.0) % Plt Count 298 (160-400) X10*3/uL MPV 9.3 L (9.4-12.3) fL Immature Gran % (Auto) 0.3 (0.0-0.4) % Neut % (Auto) 73.9 H (45-73) % Lymph % (Auto) 16.8 L (20-40) % [place] % (Auto) 7.6 (2-11) % Eos % (Auto) 1.0 (0-4) % Baso % (Auto) 0.4 (0-2) % Lymph # (Auto) 1.3 (1.2-4.9) X10*3/uL [place] # (Auto) 0.6 (0.1-1.2) X10*3/uL Eos # (Auto) 0.1 (0.0-0.4) X10*3/uL Baso # (Auto) 0.0 (0.0-0.2) X10*3/uL Abs Immat Gran (auto) 0.02 (0.00-0.03) X10*3/uL Absolute Neuts (auto) 5.7 (2.0-8.3) x10*3/uL Absolute Nucleated RBC 0.000 (0.0-0.012) X10*3/uL Nucleated RBC % (auto) 0.0 (0.0-0.2) /100WBC PT 11.5 (10.9-12.4) SEC INR 1.0 (0.9-1.1) Sodium 140 (135-145) mmol/L Potassium 3.7 (3.3-5.1) mmol/L Chloride 108 (96-108) mmol/L Carbon Dioxide 23 (22-29) mmol/L Anion Gap 13 (12-20) BUN 12 (9-16) mg/dL Creatinine 0.79 (0.5-1.4) mg/dL Estim Creat Clear Calc 88.7 Estimated GFR > 60 Random Glucose 98 (60-115) mg/dL Calcium 9.7 (8.4-10.2) mg/dL Magnesium 2.2 (1.6-2.6) mg/dL Total Bilirubin 0.5 (0.0-1.0) mg/dL Direct Bilirubin 0.2 (0.0-0.5) mg/dL AST 29 (5-31) U/L ALT 22 (0-31) U/L Alkaline Phosphatase 92 (39-117) U/L Troponin I High Sens < 2.7 (<3.5-17.0) ng/L Total Protein 7.8 (6.5-8.0) g/dL Albumin 4.3 (3.5-5.0) g/dL TSH 1.93 (0.32-4.0) uIU/mL Influenza Type A (PCR) NEGATIVE (Negative) Influenza Type B (PCR) NEGATIVE (Negative) RSV RNA Qual (PCR) NEGATIVE (Negative) SARS-CoV-2 RNA (RT-PCR) NEGATIVE (Negative) Independent Interpretation I performed an independent interpretation of an: EKG Interpretation: Sinus tachycardia with heart rate 127 beats per minute no acute ST-T changes no acute ischemia Discharge Plan Discharge Clinical Impression: Atypical chest pain, Tendinitis of left rotator cuff, Anxiety Patient Disposition: Home, Self-Care Instructions: Chest Pain (ED), Rotator Cuff Tendinitis (ED), Anxiety (ED) Additional Instructions: Likely your pain in the left arm is from the tendinitis of the rotator cuff muscles is not from the heart Take ibuprofen for pain Take medication for your anxiety and sleep as prescribed and follow up with the PCP Prescriptions: New ibuprofen 600 mg tablet 600 mg PO Q6H PRN (Reason: fever or pain) Qty: 30 0RF clonazepam [Klonopin] 1 mg tablet 1 mg PO BEDTIME PRN (Reason: Anxiety/sleep) Qty: 14 0RF Rx Instructions: administer 30 minutes before bedtime No Action Viberzi 100 mg tablet 100 mg PO BID Qty: 60 5RF Rx Instructions: must administer with a meal/food Creon 24,000-76,000 -120,000 unit capsule,delayed release(DR/EC) 2 cap PO QID 30 Days Qty: 240 3RF Rx Instructions: administer with meals and/or snacks pantoprazole 40 mg tablet,delayed release (DR/EC) 40 mg PO DAILY Qty: 90 1RF medroxyprogesterone 150 mg/mL suspension 150 mg IM [id number] albuterol sulfate [ProAir HFA] 90 mcg/actuation HFA aerosol inhaler 2 puff inhalation Q4-6H PRN (Reason: shortness of breath or wheezing) Qty: 8.5 4RF atorvastatin 20 mg tablet 10 mg PO BEDTIME 90 Days Qty: 45 2RF (DME) blood pressure monitor [Blood Pressure Kit] Kit See Rx Instructions .Route Qty: 1 0RF Rx Instructions: monitor bp daily and when not feeling well losartan 50 mg tablet 50 mg PO DAILY 90 Days Qty: 90 3RF Rx Instructions: corrected rx fluoxetine 20 mg tablet 30 mg PO DAILY 90 Days Qty: 135 2RF budesonide-formoterol [Symbicort] 80-4.5 mcg/actuation HFA aerosol inhaler 1 inh inhalation BID 30 Days Qty: 10.2 2RF metoprolol succinate 25 mg tablet extended release 24 hr 25 mg PO DAILY 90 Days Qty: 90 2RF loperamide [Anti-Diarrheal (loperamide)] 2 mg tablet PO dicyclomine 20 mg tablet 20 mg PO QID 30 Days Qty: 120 6RF acetaminophen [Tylenol Extra Strength] 500 mg tablet 500 mg PO Q6H PRN ondansetron 4 mg tablet,disintegrating 4 mg PO BID-TID PRN (Reason: nausea and vomiting) Qty: 14 0RF Interventions: ED Discharge Assessment Last Done: 07/30/24 21:22 Discharge Date/Time: 07/30/24 21:23 Print Language: Sami
[2024-07-30] MEDS: clonazePAM 1 MG TABLET PO (21:12)
[2024-07-30 21:16] VITALS: BP 142/77; PULSE 84; RESP 12; TEMP 36.7; O2SAT 96
[2024-07-30 21:22] VITALS: BP 142/77; PULSE 84; RESP 12; TEMP 36.7; O2SAT 96
== END 2024-07-30 21:23 | disposition home or self-care (01) ==
PROVIDERS: Physician Assistant Medical; Emergency Provider Internal Medicine; PCP Family Medicine
DX: R07.89 Other chest pain (principal); M75.32 Calcific tendinitis of left shoulder; R20.0 Anesthesia of skin; F41.1 Generalized anxiety disorder; F43.0 Acute stress reaction; Z03.818 Encounter for observation for suspected exposure to other biological agents ruled out; Z79.899 Other long term (current) drug therapy
CPT/HCPCS: 0241U; 36415; 71046; 80048; 80076; 83735; 84443; 84484; 85025; 85610; 93005; 99283; 99284

== ENCOUNTER → 2024-07-30 14:47 | Outpatient (BNV) | payer OTHER, SELFPAY | PROVIDERS: PCP Family Medicine; Visit Provider Internal Medicine | DX: R07.9 Chest pain, unspecified (principal); R00.0 Tachycardia, unspecified; R94.31 Abnormal electrocardiogram [ECG] [EKG] | CPT/HCPCS: 93010 ==